=== PATIENT | female | born 2000 | race Caucasian/White ===

== ENCOUNTER 2021-06-21 15:07 | Emergency (ER) | payer OTHER, SELFPAY ==
[2021-06-21 15:13] VITALS: BP 131/95; PULSE 95; RESP 18; TEMP 36.2; O2SAT 100
--- NOTE | 2021-06-21 17:19 | PC.NURSE ---
pt not in waiting room when called. urine cup labeled with pt name found in empty wheelchair in lobby.
[2021-06-21 18:16] LABS: Hematocrit 42.1 % (37.0-47.0); Hemoglobin 14.8 g/dL (12.0-15.0); Mean Corpuscular HGB Conc 35.2 g/dl (32-36); Mean Corpuscular Hemoglobin 30.6 pg (26-34); Mean Corpuscular Volume 87.2 fl (80-100); Mean Platelet Volume 9.4 fl (7.4-10.4); Platelet Count Result 384 k/mm3 (150-375); Red Blood Count 4.83 M/mm3 (4.2-5.4); Red Cell Distribution Width 12.2 % (11.5-14.5); White Blood Count 15.1 K/mm3 (4.5-10.0)
[2021-06-21 18:28] LABS: Alanine Aminotransferase 19 U/L (4-35); Albumin Level 5.3 g/dL (3.5-5.1); Alkaline Phosphatase 97 U/L (38-126); Anion Gap 20 mmol/L (8-16); Aspartate Amino Transferase 28 U/L (14-36); Blood Urea Nitrogen 8 mg/dL (7-17); Calcium 10.4 mg/dL (8.4-10.2); Carbon Dioxide 15 mmol/L (22-30); Chloride 101 mmol/L (98-107); Estimated Glomerular Filt Rate > 60; Glucose 164 mg/dL (65-110); Lipase 64 U/L (23-300); Potassium 3.5 mmol/L (3.4-5.0); Sodium 136 mmol/L (137-145)
[2021-06-21 18:37] LABS: Add Urine Microscopic? YES; Appearance Urine Clear (Clear); Bacteria Urine Trace /hpf; Bilirubin Urine Negative (Negative); Blood Urine Negative (Negative); Color Urine Yellow (Yellow); Glucose Urine UA 1+ mg/dL (Negative); Ketones Urine 2+ mg/dL (Negative); Leukocyte Esterase Ur Negative LEU/UL (Negative); Mucus Urine Heavy /lpf; Nitrate Urine Negative (Negative); Protein Urine 2+ mg/dL (Negative); RBC Urine 0-2 /hpf (0-2); Squamous Epithelial Cell Urine Many /hpf (Few); Urobilinogen Urine Negative mg/dL (<2.0); WBC Urine 0-3 /hpf
[2021-06-21 18:46] LABS: Band Neutrophils Percent 3 % (0-6); Monocytes Absolute Manual 0.15 K/mm3 (0.1-0.90); Monocytes Percent Manual 1 % (3-9); Neutrophils Absolute Manual 14.34 K/mm3 (1.7-7.2); Neutrophils Percent Manual 92 % (46-73); Total Cells Counted 100
[2021-06-21 18:51] LABS: Giant Platelets Present
[2021-06-21 18:55] LABS: Specific Grav Ur 1.033 (1.001-1.035)
== END 2021-06-22 03:13 | disposition left against medical advice (07) ==
PROVIDERS: Emergency Provider Emergency Medicine
DX: O21.9 Vomiting of pregnancy, unspecified (principal)
CPT/HCPCS: 36415; 80053; 81001; 83690; 85025; 99199

== ENCOUNTER 2021-06-21 17:34 | Emergency (ER) | payer OTHER, SELFPAY ==
[2021-06-21 17:53] VITALS: BP 139/99; PULSE 90; RESP 18; TEMP 36.6; O2SAT 100
[2021-06-21 21:37] VITALS: BP 126/75; PULSE 91; RESP 16; O2SAT 100
--- NOTE | 2021-06-21 21:52 | ED.NAVMDI ---
HPI - Nausea/Vomiting/Diarrhea General Chief complaint: Nausea/Vomiting/Diarrhea Stated complaint: vomiting/ Time Seen by Provider: 06/21/21 21:42 History of Present Illness HPI Narrative: Patient is a 21-year-old female who presents ER with reports of nausea and vomiting for 5 days. She is 9 weeks along in her . She has had a documented ultrasound that shows IUP. No vaginal bleeding or discharge. No urinary frequency urgency or dysuria. Has not had diagnosis of morning sickness. Has not taken any antiemetics. Denies fevers or chills or sweats. Reports when she vomits she will often have some loose stool that escapes her. She reports she has had abdominal cramping in her upper abdomen related to the fact that she has been vomiting. Patient's OB is in [facility]. Related Data Allergies Allergy/AdvReac Type Severity Reaction Status Date / Time No Known Allergies Allergy Mild Verified 01/16/08 19:17 Review of Systems Review of Systems: All systems reviewed & are unremarkable except as noted in HPI and below Constitutional: Constitutional: Denies chills, Denies fever(s) and Denies weakness ENT: Denies nasal congestion and Denies sore throat Cardiovascular: Cardiovascular: Denies chest pain, Denies rapid heart rate and Denies radiating jaw, neck or arm pain Respiratory: Respiratory: Denies cough and Denies dyspnea Gastrointestinal: Gastrointestinal: Reports abdominal pain, Reports diarrhea, Reports nausea and Reports vomiting Musculoskeletal: Musculoskeletal: Denies arthralgias and Denies muscle cramps PMFSH Past Medical History Medical History (Updated 06/22/21 @ 00:00 by Juan Rosas MD) Healthy female adult Surgical History Surgical History (Updated 06/21/21 @ 21:54 by Juan Rosas MD) No history of previous surgery Social History Social History (Updated 06/21/21 @ 21:54 by Juan Rosas MD) Substance use: former Substance use type: marijuana Exam Narrative: GENERAL: Well-appearing, well-nourished, and in no acute distress. HEAD: Normocephalic, atraumatic. EYES: PERRL and EOMI. ENT: Mucous membranes moist. CHEST: Clear to auscultation. No respiratory distress. HEART: Regular rate and rhythm. Normal peripheral pulses. ABDOMEN: Soft, nontender, nondistended. EXTREMITIES: Normal range of motion. No edema. SKIN: Warm, dry, no rash. NEURO: Alert and oriented x3. Course Course Emergency Course: Brief improvement of nausea. No emesis here. Likely morning sickness but possible viral illness could be causing diarrhea with vomiting. No focal tenderness on exam. Discharge home with supportive therapy. Vital Signs Vital signs: Vital Signs Temperature 97.9 F 06/21/21 17:53 Pulse Rate 90 06/21/21 17:53 Respiratory Rate 18 06/21/21 17:53 Blood Pressure 139/99 H 06/21/21 17:53 Pulse Oximetry 100 06/21/21 17:53 Temperature 97.9 F 06/21/21 17:53 Pulse Rate 91 06/21/21 21:37 Respiratory Rate 16 06/21/21 21:37 Blood Pressure 126/75 06/21/21 21:37 Pulse Oximetry 100 06/21/21 21:37 MDM - Nausea/Vomiting/Diarrhea Lab Data Result diagrams: 06/21/21 22:13 06/21/21 22:13 Labs: Lab Results 06/21/21 06/21/21 Range/Units 22:13 22:13 WBC 14.5 H (4.5-10.0) K/mm3 RBC 4.64 (4.2-5.4) M/mm3 Hgb 14.2 (12.0-15.0) g/dL Hct 40.6 (37.0-47.0) % MCV 87.5 (80-100) fl MCH 30.6 (26-34) pg MCHC 35.0 (32-36) g/dl RDW 12.2 (11.5-14.5) % Plt Count 367 (150-375) k/mm3 MPV 9.4 (7.4-10.4) fl Immature Gran % (Auto) 0.6 H (0-0.5) % Neut % (Auto) 92.1 H (45.5-73.1) % Lymph % (Auto) 3.3 L (18.3-44.2) % Atkinson % (Auto) 3.8 (2.6-8.5) % Eos % (Auto) 0.0 (0-4.4) % Baso % (Auto) 0.2 (0.2-1.2) % Lymph # (Auto) 0.48 L (0.9-3.2) K/mm3 Atkinson # (Auto) 0.6 (0.1-0.6) K/mm3 Eos # (Auto) 0.0 (0-0.3) K/mm3 Baso # (Auto) 0.0 (0.0-0.1) K/mm3 Abs Immat Gra
[2021-06-21] MEDS: PROMETHAZINE HCL 25 MG/ML AMPUL 12.5 MG IV PUSH (22:17)
[2021-06-21] MEDS: SODIUM CHLORIDE 0.9% IV 1,000 ML 999 ML IV CONT (22:17)
[2021-06-21 22:23] LABS: Basophils Percent Auto 0.2 % (0.2-1.2); Hematocrit 40.6 % (37.0-47.0); Hemoglobin 14.2 g/dL (12.0-15.0); Immature Granulocyte Absolute 0.08 K/mm3 (0.00-0.031); Immature Granulocyte Percent A 0.6 % (0-0.5); Lymphocytes Absolute Auto 0.48 K/mm3 (0.9-3.2); Lymphocytes Percent Auto 3.3 % (18.3-44.2); Mean Corpuscular Hemoglobin 30.6 pg (26-34); Mean Corpuscular Volume 87.5 fl (80-100); Mean Platelet Volume 9.4 fl (7.4-10.4); Monocytes Absolute Auto 0.6 K/mm3 (0.1-0.6); Monocytes Percent Auto 3.8 % (2.6-8.5); Neutrophils Absolute Auto 13.4 K/mm3 (1.3-6.7); Neutrophils Percent Auto 92.1 % (45.5-73.1); Platelet Count Result 367 k/mm3 (150-375); Red Blood Count 4.64 M/mm3 (4.2-5.4); Red Cell Distribution Width 12.2 % (11.5-14.5); White Blood Count 14.5 K/mm3 (4.5-10.0)
[2021-06-21 22:33] LABS: Alanine Aminotransferase 20 U/L (4-35); Albumin Level 5.5 g/dL (3.5-5.1); Alkaline Phosphatase 86 U/L (38-126); Anion Gap 17 mmol/L (8-16); Aspartate Amino Transferase 27 U/L (14-36); Bilirubin,Total 1.1 mg/dL (0.2-1.3); Blood Urea Nitrogen 8 mg/dL (7-17); Calcium 10.5 mg/dL (8.4-10.2); Carbon Dioxide 19 mmol/L (22-30); Chloride 100 mmol/L (98-107); Estimated CRCL calculation 135 ml/min; Estimated Glomerular Filt Rate > 60; Glucose 121 mg/dL (65-110); Lipase 68 U/L (23-300); Potassium 3.7 mmol/L (3.4-5.0); Sodium 136 mmol/L (137-145)
[2021-06-22 00:18] VITALS: BP 124/72; PULSE 88; RESP 18; O2SAT 98
== END 2021-06-22 00:24 | disposition home or self-care (01) ==
PROVIDERS: Emergency Provider Emergency Medicine; PCP Obstetrics & Gynecology
DX: O21.9 Vomiting of pregnancy, unspecified (principal); Z3A.09 9 weeks gestation of pregnancy
CPT/HCPCS: 36415; 80053; 81025; 83690; 85025; 96361; 96374; 99284; J2550; J7030

== ENCOUNTER 2021-08-23 14:05 | Emergency (ER) | payer OTHER, MEDICAID, SELFPAY ==
--- NOTE | ~2021-08-23 | US_ITS ---
US OB limited 08/23/2021 16:09 Indication: Pelvic cramping and vaginal bleeding. Procedure: High-resolution Limited transabdominal obstetrical ultrasound Comparison: No prior studies for comparison. Findings: There is a single living intrauterine in transverse presentation. Amniotic fluid is subjectively normal. heart rate is 163 BPM. Placenta is anterior and low lying measuring 2 c m to the cervix. Impression: 1: Low-lying anterior placenta measuring 2 cm to the cervix. Reviewed, dictated and finalized at location A. ENTARY READING SPECIALIST Impression: 1: Low-lying anterior placenta measuring 2 cm to the cervix.
[2021-08-23 14:20] VITALS: BP 134/72; PULSE 103; RESP 16; TEMP 36.6; O2SAT 98
--- NOTE | 2021-08-23 14:40 | ED.GENADULT ---
HPI - General Adult General Chief complaint: Vaginal Bleeding <Isis Polk PA-C - Last Filed: 08/23/21 19:04> Stated complaint: vaginal bleeding <Isis Polk PA-C - Last Filed: 08/23/21 19:04> Time Seen by Provider: 08/23/21 14:30 <Isis Polk PA-C - Last Filed: 08/23/21 19:04> Source: patient <LUC Ulloa Last Filed: 08/23/21 19:04> Mode of arrival: ambulatory <Isis Polk PA-C - Last Filed: 08/23/21 19:04> Limitations: no limitations <Isis Polk PA-C - Last Filed: 08/23/21 19:04> History of Present Illness HPI narrative: Patient is here for bleeding and cramping she states that she is approximately 4 months but unsure of her actual dates. She had an ultrasound 2 weeks ago showing a uterine with with a visible heartbeat. She started bleeding this morning when she was in the tub she is stated that it was bright red blood, no clots. It lasted a couple minutes but the cramping has persisted. She denies any fever, no dysuria, no recent intercourse. <Isis Polk PA-C - Last Filed: 08/23/21 19:04> Onset (ago): hour(s) <Isis Polk PA-C - Last Filed: 08/23/21 19:04> Treatments prior to arrival: none <Isis Polk PA-C - Last Filed: 08/23/21 19:04> Related Data Allergies/adverse reactions: Allergies Allergy/AdvReac Type Severity Reaction Status Date / Time No Known Allergies Allergy Mild Verified 01/16/08 19:17 <LUC Ulloa Last Filed: 08/23/21 19:04> Review of Systems Review of Systems: All systems reviewed & are unremarkable except as noted in HPI and below <LUC Ulloa Last Filed: 08/23/21 19:04> PMFSH Past Medical History Medical History: Medical History Healthy female adult <Isis Polk PA-C - Last Filed: 08/23/21 19:04> Surgical History Surgical History: Surgical History No history of previous surgery <Isis Polk PA-C - Last Filed: 08/23/21 19:04> Social History Social History: Social History (Updated 08/23/21 @ 16:02 by Isis Polk PA-C) Smoking status: Never smoker Alcohol intake: never Substance use: current Substance use type: marijuana Living arrangements: with family <Isis Polk PA-C - Last Filed: 08/23/21 19:04> Exam Const: General: healthy appearing and alert <Isis Polk PA-C - Last Filed: 08/23/21 19:04> Orientation/consciousness: patient oriented x3 <Isis Polk PA-C - Last Filed: 08/23/21 19:04> HENMT: Head: normal to inspection <Isis Polk PA-C - Last Filed: 08/23/21 19:04> Eyes: Pupils: Equal, round and reactive pupils present <Isis Polk PA-C - Last Filed: 08/23/21 19:04> Resp: Effort & Inspection: normal respiratory effort <Isis Polk PA-C - Last Filed: 08/23/21 19:04> Auscultation: clear to auscultation bilaterally <Isis Polk PA-C - Last Filed: 08/23/21 19:04> Cardio: Rate: regular rate and tachycardic <Isis Polk PA-C - Last Filed: 08/23/21 19:04> Rhythm: regular rhythm <Isis Polk PA-C - Last Filed: 08/23/21 19:04> GI: GI Palp: Yes Soft to palpation and Yes Other GI palpation findings present (no palpable uterine edge) <Isis Polk PA-C - Last Filed: 08/23/21 19:04> Auscultation: normal bowel sounds <Isis Polk PA-C - Last Filed: 08/23/21 19:04> : External Female Exam: normal external appearance <Isis Polk PA-C - Last Filed: 08/23/21 19:04> Speculum Exam - Vagina: normal appearance of the vagina and normal palpation <Isis Polk PA-C - Last Filed: 08/23/21 19:04> Speculum Exam - Cervix: normal appearance of the cervix, normal palpation and Cervical os closed <LUC Ulloa Last Filed: 08/23/21 19:04> Bimanual exam- vagina & uterus: normal bimanual exam <Isis Fung
[2021-08-23] MEDS: SODIUM CHLORIDE 0.9% IV 1,000 ML 999 ML IV CONT (14:54)
[2021-08-23 16:00] VITALS: BP 110/70; PULSE 100; RESP 14; O2SAT 97
[2021-08-23 16:15] LABS: Basophils Percent Auto 0.2 % (0.2-1.2); Eosinophils Percent Auto 0.3 % (0-4.4); Hematocrit 34.6 % (37.0-47.0); Hemoglobin 12.3 g/dL (12.0-15.0); Immature Granulocyte Absolute 0.06 K/mm3 (0.00-0.031); Immature Granulocyte Percent A 0.5 % (0-0.5); Lymphocytes Absolute Auto 1.23 K/mm3 (0.9-3.2); Lymphocytes Percent Auto 9.6 % (18.3-44.2); Mean Corpuscular HGB Conc 35.5 g/dl (32-36); Mean Corpuscular Hemoglobin 30.6 pg (26-34); Mean Corpuscular Volume 86.1 fl (80-100); Mean Platelet Volume 9.5 fl (7.4-10.4); Monocytes Absolute Auto 0.9 K/mm3 (0.1-0.6); Monocytes Percent Auto 6.6 % (2.6-8.5); Neutrophils Absolute Auto 10.6 K/mm3 (1.3-6.7); Neutrophils Percent Auto 82.8 % (45.5-73.1); Platelet Count Result 290 k/mm3 (150-375); Red Blood Count 4.02 M/mm3 (4.2-5.4); Red Cell Distribution Width 12.1 % (11.5-14.5); White Blood Count 12.8 K/mm3 (4.5-10.0)
[2021-08-23 16:24] LABS: Anion Gap 8 mmol/L (8-16); Blood Urea Nitrogen 6 mg/dL (7-17); Calcium 8.8 mg/dL (8.4-10.2); Carbon Dioxide 21 mmol/L (22-30); Chloride 101 mmol/L (98-107); Estimated CRCL calculation 169 ml/min; Estimated Glomerular Filt Rate > 60; Glucose 86 mg/dL (65-110); Potassium 2.9 mmol/L (3.4-5.0); Sodium 130 mmol/L (137-145)
[2021-08-23] MEDS: ACETAMINOPHEN 500 MG TABLET 1000 MG PO (16:25)
[2021-08-23 16:30] LABS: Add Urine Microscopic? YES; Appearance Urine Cloudy (Clear); Bacteria Urine Trace /hpf; Bilirubin Urine Negative (Negative); Blood Urine Negative (Negative); Color Urine Yellow (Yellow); Glucose Urine UA 1+ mg/dL (Negative); Ketones Urine 2+ mg/dL (Negative); Leukocyte Esterase Ur Trace LEU/UL (Negative); Mucus Urine Heavy /lpf; Nitrate Urine Negative (Negative); Protein Urine 2+ mg/dL (Negative); RBC Urine 0-2 /hpf (0-2); Specific Grav Ur 1.028 (1.001-1.035); Squamous Epithelial Cell Urine Moderate /hpf (Few); Urobilinogen Urine Negative mg/dL (<2.0)
[2021-08-23 17:00] VITALS: BP 111/74; PULSE 74; RESP 17; O2SAT 97
[2021-08-23 18:00] VITALS: BP 118/79; PULSE 71; RESP 17; O2SAT 97
[2021-08-23] MEDS: ONDANSETRON HCL ODT 4 MG TABLET PO (18:13)
[2021-08-23] MEDS: DEXTROSE 5%/0.9% SOD CHL 1,000 ML 100 ML IV CONT (18:14)
[2021-08-23 19:11] VITALS: BP 120/77; PULSE 66; RESP 16; O2SAT 100
== END 2021-08-23 19:11 | disposition home or self-care (01) ==
PROVIDERS: Physician Assistant; Emergency Provider Emergency Medicine
DX: O26.892 Other specified pregnancy related conditions, second trimester (principal); R10.9 Unspecified abdominal pain; Z3A.00 Weeks of gestation of pregnancy not specified
CPT/HCPCS: 36415; 76815; 80048; 81001; 84702; 85025; 86850; 86900; 86901; 96360; 96361; 99284; A9270; J7030; J7042

== ENCOUNTER 2021-10-15 14:15 | Emergency (ER) | payer OTHER, MEDICAID, SELFPAY ==
[2021-10-15 14:31] VITALS: BP 92/78; PULSE 84; RESP 20; TEMP 35.9; O2SAT 100
--- NOTE | 2021-10-15 16:55 | PC.NURSE ---
No answer when called to lobby.
== END 2021-10-15 16:56 | disposition left against medical advice (07) ==
LOC: ANHED 14:50
DX: O21.9 Vomiting of pregnancy, unspecified (principal)
CPT/HCPCS: 99199

== ENCOUNTER 2021-11-24 08:34 | Observation (INO) | payer OTHER, MEDICAID, SELFPAY ==
[2021-11-24] VITALS (16 sets, daily range): BP systolic 111–135; BP diastolic 56–86; PULSE 51–93; RESP 18; TEMP 36.6; O2SAT 100; BMI 27.8
--- NOTE | 2021-11-24 08:49 | OBADM ---
This patient, Chaim Vazquez, admitted to the OB room OB Post 116 for observation. Patient/family oriented to hospital policies and general routines including ID bracelet, bed and alarms, visiting hours, pain management, procedures, bathroom and other care routines, personal items, smoking policy, room service/diet, and visiting hours. Patient/Family are encouraged to report perceived risks to care and to ask questions if they do not understand what they are told or what they should do.
[2021-11-24] MEDS: MAGNESIUM SULF 4 GM/WATER100ML 4 GM/100 ML BAG IVPB (09:06)
[2021-11-24] MEDS: LACTATED RINGERS 1,000 ML 75 ML IV CONT (09:07)
[2021-11-24] MEDS: BETAMETHASONE SOD PHOS/ACETATE 30 MG/5 ML VIAL 12 MG IM (09:09)
[2021-11-24] MEDS: AMPICILLIN 2 GM/NS 100 ML 2 GM/100 ML BAG IVPB (09:10)
--- NOTE | 2021-11-24 09:14 | PM.IMHP ---
H&P: HPI History of Present Illness Date/Time: 11/24/21 09:14 Chief Complaint: contractions and leaking Narrative: The patient is a 21-year-old 1 at 30 and 5/7 weeks with rupture of membranes and contractions at 6:30 a.m.. On arrival the patient was grossly ruptured and noted to be 3cm 70% effaced -2 station per the RN. Magnesium sulfate bolus of 6g is in progress and contractions and decreased to approximately every 6minutes. Betamethasone and ampicillin are also given. Group B strep is collected and sent with the patient. The patient has had an uncomplicated to this point. She generally sees [facility] for her OB care. Dr. 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 [facility] Past Medical History Medical History (Updated 11/24/21 @ 09:25 by Radha Montoya MD) Asthma Depression Healthy female adult Surgical History Surgical History No history of previous surgery Social History Social History (Updated 08/23/21 @ 16:02 by Isis Polk PA-C) Smoking status: Never smoker Alcohol intake: never Substance use: current Substance use type: marijuana Meds Home Medications and Allergies Home Medications Medication Instructions Recorded Confirmed Type promethazine 25 mg PO Q6H PRN #20 tablet 06/22/21 Rx ondansetron HCl [Zofran] 4 mg PO Q8H PRN #14 tablet 08/23/21 Rx Allergies Allergy/AdvReac Type Severity Reaction Status Date / Time No Known Allergies Allergy Mild Verified 01/16/08 19:17 Vital Signs Vital Signs - 24 hr 11/24/21 08:49 11/24/21 09:11 Pulse Rate 51 L 78 Blood Pressure 132/78 126/70 Pulse Oximetry 100 Exam Const: General: anxious Nutritional Appearance: average body habitus GI: Inspection: other ( Gravid) GI Palp: No abdominal tenderness : Speculum Exam - Cervix: Other cervical findings present (370/-2 vtx) Assessment and Plan Assessment and plan (1) 30 weeks gestation of : Code(s): Z3A.30 - 30 weeks gestation of Status: Acute (2) Premature rupture of membranes: Code(s): O42.90 - Premature rupture of membranes, unspecified as to length of time between rupture and onset of labor, unspecified weeks of gestation Status: Acute Assessment and Plan: with labor. Status post magnesium bolus of 6g that will be turned down [id number]. Status post betamethasone and ampicillin. The plan is to transfer the patient to [facility]
[2021-11-24] MEDS: MAGNESIUM SULF 20GM/WATER500ML 500 ML 50 MG IV CONT (09:33)
--- NOTE | 2021-11-24 10:34 | PC.NURSE ---
1020- Transport team here.
--- NOTE | 2021-11-24 10:51 | PC.NURSE ---
1040- Patient taken off unit on stretcher with JOI lin from [facility] and ambulance drivers.
== END 2021-11-24 10:45 | disposition short-term general hospital (02) ==
PROVIDERS: Admitting Provider Obstetrics & Gynecology Gynecology; Visit Provider Obstetrics & Gynecology Gynecology
DX: O60.03 Preterm labor without delivery, third trimester (principal); O42.913 Preterm premature rupture of membranes, unspecified as to length of time between rupture and onset of labor, third trimester; Z3A.30 30 weeks gestation of pregnancy
CPT/HCPCS: 96365; 96367; 96372; G0378; G0379; J0290; J0702; J3475; J7120

== ENCOUNTER 2024-08-02 20:59 | Emergency (ER) | payer OTHER, MEDICAID, SELFPAY ==
[2024-08-02 21:00] VITALS: BP 132/60; PULSE 72; RESP 15; TEMP 36.3; O2SAT 100
--- NOTE | 2024-08-02 21:13 | ED.GENADULT ---
HPI - General Adult General Chief complaint: Nausea/Vomiting/Diarrhea Stated complaint: vomiting Time Seen by Provider: 08/02/24 21:06 History of Present Illness HPI narrative: [age] female presents to the emergency department for evaluation for nausea vomiting diarrhea. Patient states approximately 3 days ago she developed the nausea vomiting diarrhea, states the diarrhea resolved yesterday but is still having persistent nausea and vomiting and is having difficulty keeping down fluids. Patient denies any associated abdominal pain. Patient denies any pain with urination. Patient is well-appearing and in no distress upon arrival to the emergency department. Related Data Allergies Allergy/AdvReac Type Severity Reaction Status Date / Time No Known Allergies Allergy Mild Verified 01/16/08 19:17 Review of Systems Review of Systems: All systems reviewed & are unremarkable except as noted in HPI and below PMFSH Past Medical History Medical History (Updated 08/02/24 @ 23:52 by Daniel Chávez MD) Asthma Depression Healthy female adult Surgical History Surgical History No history of previous surgery Social History Social History (Updated 08/23/21 @ 16:02 by Isis Polk PA-C) Smoking status: Never smoker Alcohol intake: never Substance use: current Substance use type: marijuana Living arrangements: with family Exam Narrative: APPEARANCE: Well appearing, no pain, no distress, well-nourished. HEAD: normocephalic, atraumatic. EYES: PERRLA/EOMI, conjunctivae clear. NOSE: Normal no drainage EARS:TMS clear with good light reflex. THROAT: Pharynx clear, no exudate. NECK: Supple. No adenopathy, no masses. RESPIRATORY: Airway patent, respirations nonlabored. Clear to auscultation bilaterally, no rales, rhonchi, wheezing. CARDIOVASCULAR: Regular rate and rhythm without murmurs rubs or gallops. ABDOMINAL: Suprapubic abdominal tenderness to palpation MUSCULOSKELETAL: Moves all extremities. Strength/ROM intact, No edema, No calf tenderness. NEURO: Alert. Cranial nerves II through XII intact. Grossly intact SKIN: Warm, dry. Normal Color Course Vital Signs Vital signs: Vital Signs Temperature 97.3 F L 08/02/24 21:00 Pulse Rate 72 08/02/24 21:00 Respiratory Rate 15 08/02/24 21:00 Blood Pressure 132/60 08/02/24 21:00 Pulse Oximetry 100 08/02/24 21:00 Oxygen Delivery Room Air 08/02/24 21:00 Temperature 97.3 F L 08/02/24 21:00 Pulse Rate 55 L 08/02/24 23:58 Respiratory Rate 14 08/02/24 23:58 Blood Pressure 133/74 08/02/24 23:58 Pulse Oximetry 100 08/02/24 23:58 Oxygen Delivery Room Air 08/02/24 21:00 Medical Decision Making MDM Narrative Medical decision making narrative: [age] old female present to the emergency department for evaluation for persistent nausea and vomiting. Patient was treated with a dose of IV Zofran and had some improvement. Patient felt significantly improved after IV Reglan. Patient is afebrile with no leukocytosis and hemoglobin of 15.5. No acute abnormalities on her CMP. UA was negative for infection. Urine culture was ordered. On re-evaluation patient states she does feel improved after the Reglan. Patient will be discharged home with instructions for clear liquid diet medications for for nausea. Differential Diagnosis Differential Diagnosis: Colitis, diverticulitis, gastroenteritis, nausea vomiting Vital Signs Vital Signs: Vital Signs Temperature 97.3 F L 08/02/24 21:00 Pulse Rate 72 08/02/24 21:00 Respiratory Rate 15 08/02/24 21:00 Blood Pressure 132/60 08/02/24 21:00 Pulse Oximetry 100 08/02/24 21:00 Oxygen Delivery Room Air 08/02/24 21:00 Temperature 97.3 F L 08/02/24 21:00 Pulse Rate 55 L 08/02/24 23:58 Respiratory Rate 14 08/02/24 23:58 Blood Pressure 133/74 08/02/24 23:58 Pulse Oximetry 100 08/02/24 23:58 Oxygen Delivery Room Air 08/02/24 21:00 Lab Data Lab results reviewed: Yes I reviewed the patient's lab results. 08/02/24 21:18 08/02/24 21:18 Labs: Lab Results 08/02/24 08/02/24 Range/Units 21:08 21:18 WBC 7.4 (4.5-10.0) K/mm3 RBC 5.02 (4.2-5.4) M/mm3 Hgb 15.5 H D (12.0-15.0) g/dL Hct 44.7 (37.0-47.0) % MCV 89.0 (80-100) fl MCH 30.9 (26-34) pg MCHC 34.7 (32-36) g/dl RDW 12.1 (11.5-14.5) % Plt Count 289 (150-375) k/mm3 MPV 9.6 (7.4-10.4) fl Immature Gran % (Auto) 0.4 (0-0.5) % Neut % (Auto) 83.6 H (45.5-73.1) % Lymph % (Auto) 7.9 L (18.3-44.2) % Weber % (Auto) 7.7 (2.6-8.5) % Eos % (Auto) 0.1 (0-4.4) % Baso % (Auto) 0.3 (0.2-1.2) % Lymph # (Auto) 0.58 L (0.9-3.2) K/mm3 Weber # (Auto) 0.6 (0.1-0.6) K/mm3 Eos # (Auto) 0.0 (0-0.3) K/mm3 Baso # (Auto) 0.0 (0.0-0.1) K/mm3 Abs Immat Gran (auto) 0.03 (0.00-0.031) K/mm3 Absolute Neuts (auto) 6.2 (1.3-6.7) K/mm3 Absolute Nucleated RBC 0.000 (0.0-0.012) K/mm3 Nucleated RBC % 0.0 (0.0-0.2) % Sodium 139 (137-145) mmol/L Potassium 3.5 (3.4-5.0) mmol/L Chloride 97 L (98-107) mmol/L Carbon Dioxide 26 (22-30) mmol/L Anion Gap 16 H (4-12) mmol/L BUN 10 (7-17) mg/dL Creatinine 0.60 L (0.7-1.0) mg/dL Estim Creat Clear Calc 106 ml/min Estimated GFR > 60 (59 - ) Glucose 114 H (65-110) mg/dL Lactic Acid 1.5 (0.7-2.0) mmol/L Calcium 9.8 (8.4-10.2) mg/dL Total Bilirubin 0.7 (0.2-1.3) mg/dL AST 26 (14-36) U/L ALT 20 (6-35) U/L Alkaline Phosphatase 80 (38-126) U/L Total Protein 9.0 H (6.3-8.2) g/dL Albumin 5.2 H (3.5-5.1) g/dL Urine Color Yellow (Yellow) Urine Appearance Clear (Clear) Urine pH 6.0 (5.0-9.0) Ur Specific [place] 1.033 (1.001-1.035) Urine Protein 2+ H (Negative) mg/dL Urine Glucose (UA) Negative (Negative) mg/dL Urine Ketones 4+ H (Negative) mg/dL Ur Blood (Man) Non-hemolyzed trace H (Negative) Urine Nitrate Negative (Negative) Urine Bilirubin Negative (Negative) Urine Urobilinogen 1.0 (<2.0) mg/dL Add Ur Microanalysis Reviewed Leukocyte Esterase Rfl Negative (Negative) DARIN/UL Urine RBC 6-10 H (0-2) /hpf Urine WBC 0-5 (0-3) /hpf Ur Squamous Epith Cells Few (Few) /hpf Urine Bacteria 1+ H /hpf Urine Casts 0-2 Urine Mucus Present /lpf POC Urine HCG, Qual Negative (Negative) Discharge Plan Discharge Clinical Impression: Nausea & vomiting Patient Disposition: Home, Self-Care Condition: Stable Instructions: Antibiotic Form, Clear Liquid Diet (ED), Acute Nausea and Vomiting (ED) Additional Instructions: Zofran as needed for nausea control. reglan as needed for additional nausea control. Clear liquid diet for the next 1-3 days. Advance to bland diet as tolerated. Have close follow-up with your primary care physician. Prescriptions: New ondansetron 4 mg tablet,disintegrating 4 mg PO Q8H PRN (Reason: nausea and vomiting) Qty: 14 0RF metoclopramide HCl [Reglan] 10 mg tablet 10 mg PO Q6H PRN (Reason: nausea and vomiting) Qty: 14 0RF No Action ondansetron HCl [Zofran] 4 mg tablet 4 mg PO Q8H PRN (Reason: nausea and vomiting) Qty: 14 0RF Follow-up/Referrals: PHYSICIAN,FINANCIAL RESERVE CLERK [Primary Care Provider] -
[2024-08-02 21:15] VITALS: BP 147/72; PULSE 73; RESP 19; O2SAT 100
[2024-08-02] MEDS: ONDANSETRON INJ 4 MG/2 ML VIAL IV PUSH (21:20)
[2024-08-02] MEDS: SODIUM CHLORIDE 0.9% IV 1,000 ML 999 ML IV CONT (21:20)
[2024-08-02 21:26] LABS: BEDSIDEPREGUCG Negative (Negative)
[2024-08-02 21:33] LABS: Basophils Percent Auto 0.3 % (0.2-1.2); Eosinophils Percent Auto 0.1 % (0-4.4); Hematocrit 44.7 % (37.0-47.0); Hemoglobin 15.5 g/dL (12.0-15.0); Immature Granulocyte Absolute 0.03 K/mm3 (0.00-0.031); Immature Granulocyte Percent A 0.4 % (0-0.5); Lymphocytes Absolute Auto 0.58 K/mm3 (0.9-3.2); Lymphocytes Percent Auto 7.9 % (18.3-44.2); Mean Corpuscular HGB Conc 34.7 g/dl (32-36); Mean Corpuscular Hemoglobin 30.9 pg (26-34); Mean Platelet Volume 9.6 fl (7.4-10.4); Monocytes Absolute Auto 0.6 K/mm3 (0.1-0.6); Monocytes Percent Auto 7.7 % (2.6-8.5); Neutrophils Absolute Auto 6.2 K/mm3 (1.3-6.7); Neutrophils Percent Auto 83.6 % (45.5-73.1); Platelet Count Result 289 k/mm3 (150-375); Red Blood Count 5.02 M/mm3 (4.2-5.4); Red Cell Distribution Width 12.1 % (11.5-14.5); White Blood Count 7.4 K/mm3 (4.5-10.0)
[2024-08-02 21:40] LABS: Lactic Acid Reflex 1.5 mmol/L (0.7-2.0)
[2024-08-02 21:43] LABS: Alanine Aminotransferase 20 U/L (6-35); Albumin Level 5.2 g/dL (3.5-5.1); Alkaline Phosphatase 80 U/L (38-126); Anion Gap 16 mmol/L (4-12); Aspartate Amino Transferase 26 U/L (14-36); Bilirubin,Total 0.7 mg/dL (0.2-1.3); Blood Urea Nitrogen 10 mg/dL (7-17); Calcium 9.8 mg/dL (8.4-10.2); Carbon Dioxide 26 mmol/L (22-30); Chloride 97 mmol/L (98-107); Estimated CRCL calculation 106 ml/min; Estimated Glomerular Filt Rate > 60; Glucose 114 mg/dL (65-110); Potassium 3.5 mmol/L (3.4-5.0); Sodium 139 mmol/L (137-145)
[2024-08-02 21:51] LABS: Add Urine Microscopic? YES; Appearance Urine Clear (Clear); Bacteria Urine 1+ /hpf; Bilirubin Urine Negative (Negative); Blood Urine Non-Hemolyzed Trace (Negative); Color Urine Yellow (Yellow); Glucose Urine UA Negative (Negative); Ketones Urine 4+ mg/dL (Negative); Leukocyte Esterase Ur Negative LEU/UL (Negative); Mucus Urine Present /lpf; Need Manual Microscopic Reviewed; Nitrate Urine Negative (Negative); Non Pathogenic Casts 0-2; Protein Urine 2+ mg/dL (Negative); Specific Grav Ur 1.033 (1.001-1.035); Squamous Epithelial Cell Urine Few /hpf (Few); WBC Urine 0-5 /hpf (0-3)
[2024-08-02 22:49] VITALS: BP 151/94; PULSE 62; RESP 18; O2SAT 100
[2024-08-02] MEDS: METOCLOPRAMIDE HCL INJ 10 MG/2 ML VIAL IV PUSH (22:49)
[2024-08-02 23:58] VITALS: BP 133/74; PULSE 55; RESP 14; O2SAT 100
== END 2024-08-03 | disposition home or self-care (01) ==
PROVIDERS: Emergency Provider Emergency Medicine
DX: R11.2 Nausea with vomiting, unspecified (principal); J45.909 Unspecified asthma, uncomplicated
CPT/HCPCS: 36415; 80053; 81001; 81025; 83605; 85025; 96361; 96374; 96375; 99284; J2405; J2765; J7030

== ENCOUNTER 2024-08-06 06:13 | Emergency (ER) | payer OTHER, MEDICAID, SELFPAY ==
[2024-08-06] VITALS (20 sets, daily range): BP systolic 127–136; BP diastolic 81–95; PULSE 64–89; RESP 18–20; TEMP 36.6–37; O2SAT 90–100
--- NOTE | ~2024-08-06 | CT_ITS ---
EXAMINATION: CT abdomen pelvis w con DATE: 08/06/2024 08:02 INDICATION: Abdominal pain. TECHNIQUE: Computed tomography (CT) of the abdomen and pelvis was performed with 100 mL Omnipaque 350 intravenous contrast. Automated exposure control and iterative reconstruction technique were employe d. The dose-length product was 214.84 mGy-cm. COMPARISON: None. FINDINGS: The visualized portions of the lung bases are clear without pneumonia or pleural effusion. The heart size is normal. No pericardial effusion. The liver, gallbladder, spleen, pancreas, adrenal glands, and left kidney are normal. There is an 8 mm cyst in right kidney. There are no dilated loops of bowel. The appendix is normal. There are no pathologically enlarged lymph nodes. There is physiol ogic fluid in the pelvis. There are Schmorl's nodes at multiple levels in the spine. IMPRESSION: 1. No etiology for the patient's symptoms. Reviewed, dictated and finalized at location A. NSED PRACTICAL NURSE
[2024-08-06 06:30] LABS: Basophils Absolute Auto 0.1 K/mm3 (0.0-0.1); Basophils Percent Auto 0.6 % (0.2-1.2); Eosinophils Absolute Auto 0.1 K/mm3 (0-0.3); Eosinophils Percent Auto 1.3 % (0-4.4); Hematocrit 44.4 % (37.0-47.0); Hemoglobin 15.1 g/dL (12.0-15.0); Immature Granulocyte Absolute 0.04 K/mm3 (0.00-0.031); Immature Granulocyte Percent A 0.5 % (0-0.5); Lymphocytes Percent Auto 15.9 % (18.3-44.2); Mean Corpuscular Volume 88.3 fl (80-100); Mean Platelet Volume 9.1 fl (7.4-10.4); Monocytes Absolute Auto 0.9 K/mm3 (0.1-0.6); Monocytes Percent Auto 10.6 % (2.6-8.5); Neutrophils Absolute Auto 6.3 K/mm3 (1.3-6.7); Neutrophils Percent Auto 71.1 % (45.5-73.1); Platelet Count Result 333 k/mm3 (150-375); Red Blood Count 5.03 M/mm3 (4.2-5.4); Red Cell Distribution Width 11.7 % (11.5-14.5); White Blood Count 8.8 K/mm3 (4.5-10.0)
[2024-08-06 06:37] LABS: BEDSIDEPREGUCG Negative (Negative)
[2024-08-06 06:40] LABS: Alanine Aminotransferase 16 U/L (6-35); Albumin Level 4.9 g/dL (3.5-5.1); Alkaline Phosphatase 75 U/L (38-126); Anion Gap 11 mmol/L (4-12); Aspartate Amino Transferase 25 U/L (14-36); Bilirubin,Total 1.2 mg/dL (0.2-1.3); Blood Urea Nitrogen 11 mg/dL (7-17); Calcium 9.3 mg/dL (8.4-10.2); Carbon Dioxide 26 mmol/L (22-30); Chloride 96 mmol/L (98-107); Estimated CRCL calculation 88 ml/min; Estimated Glomerular Filt Rate > 60; Glucose 79 mg/dL (65-110); Lipase 66 U/L (23-300); Potassium 3.5 mmol/L (3.4-5.0); Sodium 133 mmol/L (137-145)
[2024-08-06 06:48] LABS: Add Urine Microscopic? YES; Appearance Urine Clear (Clear); Bacteria Urine 1+ /hpf; Bilirubin Urine Negative (Negative); Blood Urine 2+ (Negative); Color Urine Yellow (Yellow); Glucose Urine UA Negative (Negative); Ketones Urine 4+ mg/dL (Negative); Leukocyte Esterase Ur Trace LEU/UL (Negative); Nitrate Urine Negative (Negative); Non Pathogenic Casts 0-2; Protein Urine 1+ mg/dL (Negative); RBC Urine 0-2 /hpf (0-2); Specific Grav Ur 1.027 (1.001-1.035); Squamous Epithelial Cell Urine Occasional /hpf (Few); pH Urine 5.5 (5.0-9.0)
[2024-08-06] MEDS: ONDANSETRON INJ 4 MG/2 ML VIAL IV PUSH (08:09)
--- NOTE | 2024-08-06 08:44 | ED.GENADULT ---
HPI - General Adult General Chief complaint: Nausea/Vomiting/Diarrhea Stated complaint: Nausea; major contsipation ; no intake 5 days Time Seen by Provider: 08/06/24 07:11 History of Present Illness HPI narrative: Patient is a 24-year-old female who presents emergency department with chief complaint of nausea constipation and not eating and drinking for the last 5 days. The patient reports she was seen in the emergency department recently for nausea vomiting the patient reports that she has had no bowel movement and has a heavy feeling in her abdomen. Patient reports that she still feels nauseated reports no fevers Related Data Allergies Allergy/AdvReac Type Severity Reaction Status Date / Time No Known Allergies Allergy Mild Verified 08/06/24 06:23 Review of Systems Review of Systems: A 10 system review of systems was completed on the patient and is negative except for what is stated in the HPI. Nursing and ancillary documentation was reviewed. [facility] Past Medical History Medical History Asthma Depression Healthy female adult Surgical History Surgical History No history of previous surgery Social History Social History Smoking status: Never smoker Alcohol intake: never Substance use: current Substance use type: marijuana Living arrangements: with family Exam Narrative: GENERAL: Well-appearing, well-nourished, and in no acute distress. HEAD: Normocephalic, atraumatic. EYES: PERRLA and EOMI. ENT: Nares clear, no rhinorrhea or epistaxis. Mucous membranes moist. NECK: Supple. CHEST: Clear to auscultation. No respiratory distress. HEART: Regular rate and rhythm. No murmur heard. Normal peripheral pulses. ABDOMEN: Soft, diffuse mild tenderness, nondistended, normal active bowel sounds. EXTREMITIES: Normal range of motion. No edema. SKIN: Warm, dry, no rash. NEURO: No focal deficits. Alert and oriented x3. PSYCH: Normal mood and affect. Course Vital Signs Vital signs: Vital Signs Temperature 37.0 C 08/06/24 06:18 Pulse Rate 89 08/06/24 06:18 Respiratory Rate 20 08/06/24 06:18 Blood Pressure 134/95 H 08/06/24 06:18 Pulse Oximetry 100 08/06/24 06:18 Oxygen Delivery Room Air 08/06/24 06:18 Temperature 36.6 C 08/06/24 09:20 Pulse Rate 70 08/06/24 09:20 Respiratory Rate 18 08/06/24 09:20 Blood Pressure 136/88 08/06/24 09:20 Pulse Oximetry 100 08/06/24 09:20 Oxygen Delivery Room Air 08/06/24 06:18 Medical Decision Making [facility] Narrative Medical decision making narrative: Differential diagnosis includes intra-abdominal infection, bowel obstruction, constipation, UTI, pyelonephritis Laboratory studies were obtained on the patient showed a CBC with white count of 8.8 hemoglobin was 15.1 is slightly decreased from the previous visit. Electrolytes showed a sodium 133 creatinine was 0.7 bilirubin is 1.2 AST and ALT are normal lipase was normal urinalysis showed 4+ ketones trace leukocyte esterase 6-10 white blood cells 1+ bacteria. Vital Signs Vital Signs: Vital Signs Temperature 37.0 C 08/06/24 06:18 Pulse Rate 89 08/06/24 06:18 Respiratory Rate 20 08/06/24 06:18 Blood Pressure 134/95 H 08/06/24 06:18 Pulse Oximetry 100 08/06/24 06:18 Oxygen Delivery Room Air 08/06/24 06:18 Temperature 36.6 C 08/06/24 09:20 Pulse Rate 70 08/06/24 09:20 Respiratory Rate 18 08/06/24 09:20 Blood Pressure 136/88 08/06/24 09:20 Pulse Oximetry 100 08/06/24 09:20 Oxygen Delivery Room Air 08/06/24 06:18 Lab Data 08/06/24 06:24 08/06/24 06:24 Labs: Lab Results 08/06/24 08/06/24 08/06/24 Range/Units 06:24 06:33 06:35 WBC 8.8 (4.5-10.0) K/mm3 RBC 5.03 (4.2-5.4) M/mm3 Hgb 15.1 H (12.0-15.0) g/dL Hct 44.4 (37.0-47.0) % MCV 88.3 (80-100) fl MCH 30.0 (26-34) pg MCHC 34.0 (32-36) g/dl RDW 11.7 (11.5-14.5) % Plt Count 333 (150-375) k/mm3 MPV 9.1 (7.4-10.4) fl Immature Gran % (Auto) 0.5 (0-0.5) % Neut % (Auto) 71.1 (45.5-73.1) % Lymph % (Auto) 15.9 L (18.3-44.2) % [place] % (Auto) 10.6 H (2.6-8.5) % Eos % (Auto) 1.3 (0-4.4) % Baso % (Auto) 0.6 (0.2-1.2) % Lymph # (Auto) 1.40 (0.9-3.2) K/mm3 [place] # (Auto) 0.9 H (0.1-0.6) K/mm3 Eos # (Auto) 0.1 (0-0.3) K/mm3 Baso # (Auto) 0.1 (0.0-0.1) K/mm3 Abs Immat Gran (auto) 0.04 H (0.00-0.031) K/mm3 Absolute Neuts (auto) 6.3 (1.3-6.7) K/mm3 Absolute Nucleated RBC 0.000 (0.0-0.012) K/mm3 Nucleated RBC % 0.0 (0.0-0.2) % Sodium 133 L (137-145) mmol/L Potassium 3.5 (3.4-5.0) mmol/L Chloride 96 L (98-107) mmol/L Carbon Dioxide 26 (22-30) mmol/L Anion Gap 11 (4-12) mmol/L BUN 11 (7-17) mg/dL Creatinine 0.70 (0.7-1.0) mg/dL Estim Creat Clear Calc 88 ml/min Estimated GFR > 60 (59 - ) Glucose 79 (65-110) mg/dL Calcium 9.3 (8.4-10.2) mg/dL Total Bilirubin 1.2 (0.2-1.3) mg/dL AST 25 (14-36) U/L ALT 16 (6-35) U/L Alkaline Phosphatase 75 (38-126) U/L Total Protein 8.0 (6.3-8.2) g/dL Albumin 4.9 (3.5-5.1) g/dL Lipase 66 (23-300) U/L Urine Color Yellow (Yellow) Urine Appearance Clear (Clear) Urine pH 5.5 (5.0-9.0) Ur Specific [place] 1.027 (1.001-1.035) Urine Protein 1+ H (Negative) mg/dL Urine Glucose (UA) Negative (Negative) mg/dL Urine Ketones 4+ H (Negative) mg/dL Ur Blood (Man) 2+ H (Negative) Urine Nitrate Negative (Negative) Urine Bilirubin Negative (Negative) Urine Urobilinogen 1.0 (<2.0) mg/dL Leukocyte Esterase Rfl Trace H (Negative) DARIN/UL Urine RBC 0-2 (0-2) /hpf Urine WBC 6-10 H (0-3) /hpf Ur Squamous Epith Cells Occasional (Few) /hpf Urine Bacteria 1+ H /hpf Urine Casts 0-2 POC Urine HCG, Qual Negative (Negative) Discharge Plan Discharge Clinical Impression: UTI (urinary tract infection), Abdominal pain, Nausea and vomiting Patient Disposition: Home, Self-Care Condition: Stable Instructions: Antibiotic Form, Urinary Tract Infection in Women (ED), Acute Nausea and Vomiting (ED), Abdominal Pain (ED) Prescriptions: New ondansetron 4 mg tablet,disintegrating 4 mg PO Q8H PRN (Reason: nausea and vomiting) Qty: 10 0RF cephalexin 500 mg capsule 500 mg PO Q12H 7 Days Qty: 14 0RF No Action ondansetron HCl [Zofran] 4 mg tablet 4 mg PO Q8H PRN (Reason: nausea and vomiting) Qty: 14 0RF ondansetron 4 mg tablet,disintegrating 4 mg PO Q8H PRN (Reason: nausea and vomiting) Qty: 14 0RF metoclopramide HCl [Reglan] 10 mg tablet 10 mg PO Q6H PRN (Reason: nausea and vomiting) Qty: 14 0RF Follow-up/Referrals: Catarino Kuo MD [Physician] - UNKNOWN,DOCTOR [Primary Care Provider] - Time of Disposition: 09:09
[2024-08-06] MEDS: MAGNESIUM CITRATE 300 ML BTL PO (09:18)
== END 2024-08-06 09:22 | disposition home or self-care (01) ==
PROVIDERS: Preventive Medicine Aerospace Medicine; Emergency Provider Emergency Medicine
DX: N39.0 Urinary tract infection, site not specified (principal); R11.2 Nausea with vomiting, unspecified; R10.9 Unspecified abdominal pain
CPT/HCPCS: 36415; 74177; 80053; 81001; 81025; 83690; 85025; 87086; 99284; A9270; J2405; Q9967

== ENCOUNTER 2025-02-15 16:48 | Outpatient (CLI) | payer OTHER, MEDICAID, SELFPAY ==
--- NOTE | ~2025-02-15 | XR_ITS ---
Supine views of the abdomen Clinical history: Abdominal pain Findings: Bowel gas pattern is nonspecific. No evidence for obstruction or free air. No abnormal mass lesion or calcification is seen. Osseous structures are intact. Impression: No significant abnormality is seen. Reviewed, dictated and finalized at [facility]. Impression: No significant abnormality is seen.
--- OUTSIDE RECORDS SUMMARY | 2025-02-15 16:51 | XMS_ITS | Clinical Summary ---
Author Organization [facility] Address [address] [place] [address] Care Team Providers Care Nurse Tech Name Role Phone Minh Lam DO Primary Care Provider [phone] Allergies No known active allergies Medications famotidine (PEPCID) 40 mg tablet Take 1 tablet (40 mg total) by mouth daily 30 tablet 11 Active sucralfate (CARAFATE) 1 gram tablet Take 1 tablet (1 g total) by mouth 4 (four) times a day as needed (severity of heartburn) You may decrease to twice per day preferably before supper and bedtime 120 tablet 1 Active methylPREDNISolon e (MEDROL DOSEPACK) 4 mg Dosepack Take as directed on package 1 packet Active ondansetron (ZOFRAN) 8 mg tablet Take 1 tablet (8 mg total) by mouth every 8 (eight) hours as needed for nausea or vomiting Disintegrating tablet fine to give 60 tablet 1 Active metoclopramide (REGLAN) 10 mg tablet Take 1 tablet (10 mg total) by mouth 4 (four) times a day as needed (nausea) 60 tablet 1 Active guaiFENesin ER (MUCINEX) 600 mg 12 hr tablet Take 1 tablet (600 mg total) by mouth 2 (two) times a day 60 tablet 1 Active ondansetron ODT (ZOFRAN-ODT) 4 mg disintegrating tabletIndications :Excessive Vomiting in Take 1 tablet (4 mg total) by mouth every 8 (eight) hours as needed for nausea or vomiting 30 tablet 3 022 Active metoclopramide (REGLAN) 10 mg tablet Take 1 tablet (10 mg total) by mouth every 6 (six) hours 120 tablet 025 2024 Active metoclopramide (REGLAN) 10 mg tablet Take 1 tablet (10 mg total) by mouth every 6 (six) hours 120 tablet 025 2024 Discontinued Active Problems Problem Noted Date Diagnosed Date Hyperemesis 06/28/2021 Encounters Date Type Department Care Team Description 02/13/2025 5:16 AM CDT - 02/13/2025 9:12 AM CDT Emergency [facility] Emergency Department [address] [place] [id number] Awilda Prieto MD Nausea and vomiting, unspecified vomiting type (Primary Dx) Discharge Disposition: Discharge to home or self care from Last 3 Months Social History Tobacco Use Types Packs/Day Years Used Date Smoking Tobacco: Never Personal Safety Answer Date Recorded Have you ever been in or are you currently in a harmful physical or emotional relationship or is someone making you feel afraid or unsafe? Denies 02/13/2025 Comments No Sex and Gender Information Value Date Recorded Sex Assigned at Not on file Legal Sex Female 12:07 AM [employer] Gender Identity Not on file Sexual Orientation Not on file Obstetrics History Para Term AB IAB SAB Ectopic Multiple Livin g Live Births 1 Date Outcome GA Total Labor Labor/2nd/3rd Weight Sex Type Anes PTL Talia A1 A5 Name Clin Last Filed Vital Signs Vital Sign Reading Time Taken Comments Blood Pressure 121/74 02/13/2025 8:00 AM CDT Pulse 51 02/13/2025 8:45 AM CDT Temperature 36.1 C (96.9 F) 02/13/2025 4:48 AM CDT Respiratory Rate 18 02/13/2025 4:48 AM CDT Oxygen Saturation 100% 02/13/2025 8:45 AM CDT Inhaled Oxygen Concentration - - Weight 56.2 kg (124 lb) 02/13/2025 4:48 AM CDT Height 167.6 cm (5' 6 ) 02/13/2025 4:48 AM CDT Body Mass Index 20.01 02/13/2025 4:48 AM CDT Plan of Treatment Health Maintenance Due Date Last Done Comments Cervical Cancer Screening 2000 Depression Screening 2000 Hepatitis C Screening 2000 DTaP/Tdap/Td Vaccine (1 - Tdap) 2011 Varicella Vaccines (1 of 2 - 13+ 2-dose series) 2012 HPV Vaccines (1 - 3-dose series) 2015 Hepatitis B Screening 2018 Regular Well Visit/Exam 18-64 2018 Pneumococcal vaccine <65 (1 of 2 - PCV) 2019 Influenza Vaccine (Season Ended) 2025 Procedures Procedure Name Priority Date/Time Associated Diagnosis Comments URINALYSIS, MICROSCOPIC ONLY STAT 02/13/2025 7:47 AM CDT HCG, URINE, QUALITATIVE STAT 02/13/2025 7:47 AM CDT URINALYSIS AND REFLEX TO MICROSCOPIC AND CULTURE STAT 02/13/2025 7:47 AM CDT EGFR STAT 02/13/2025 4:54 AM CDT DIFFERENTIAL AUTO STAT 02/13/2025 4:5 4 AM CDT LIPASE STAT 02/13/2025 4:54 AM CDT COMPREHENSIVE METABOLIC PANEL STAT 02/13/2025 4:54 AM CDT CBC WITH AUTO DIFFERENTIAL STAT 02/13/2025 4:54 AM CDT from Last 3 Months Results * (ABNORMAL) Urinalysis reflex to microscopic and culture Urine (02/13/2025 7:47 AM CDT) Color, ur Yellow Yellow Clarity, ur Clear Clear [facility] ([place]) Specific gravity, ur 1.019 1.003 - 1.030 [facility] ([place]) pH, urine 6.5 [facility] ([place]) Comment: Interpretive Data U rine pH is affected by diet, medications, systemic acid-base disturbances, and renal tubular function. pH may affect urinary stone formation. For example, urine pH below 6.0 may help reduce the tendency for calcium phosphate stones and pH greater than 6.0 may reduce the tendency for uric acid stone formation. Source: [facility] Current Interpretive Data was last revised on 2017 Protein, ur ql Negative Negative [facility] ([place]) Glucose, ur ql Negative Negative [facility] ([place]) Ketones, ur 1+(A) Negative [facility] ([place]) Bilirubin, ur Negative Negative [facility] ([place]) Blood, ur 3+(A) Negative [facility] ([place]) Urobilinogen, ur <2.0 <2.0 mg/dL [facility] ([place]) Nitrite, ur Negative Negative [facility] ([place]) Leukocyte esterase, ur Negative Negative [facility] ([place]) UA reflex comment Reflex to microscopic UA will be performed. [facility] ([place]) Urine 02/13/2025 7:47 AM CDT 02/13/2025 8:03 AM CDT Awilda Prieto MD LAB MICROBIOLOGY - GENERA L ORDERABLES Final Result Performing Organization Address [facility] Co de Phone Number [facility] ([place]) 1 [facility] [place] [address] * hCG, urine, qualitative (02/13/2025 7:47 AM CDT) HCG, ur Negative Negative Urine 02/13/2025 7:47 AM CDT 02/13/2025 8:18 AM CDT Awilda Prieto MD LAB URINE ORDERABLES Rocio l Result Performing Organization Address City/[facility]/ZIP Co de Phone Number [facility] ([place] [address] [facility] [place] [address] * (ABNORMAL) Urinalysis, microscopic only (02/13/2025 7:47 AM CDT) WBC, ur 0-5 0 - 5 /HPF RBC, ur 11-20(A) 0 - 2 /HPF [facility] ([place]) Epithelial cells, squamous, ur 1-5 0 - 5 /HPF [facility] ([place]) Mucous, ur Present(A) [facility] ([place]) Culture Reflex Comment Reflex conditions for urine culture (WBC >10) not met. [facility] ([place]) Urine 02/13/2025 7:47 AM CDT 02/13/2025 8:03 AM CDT us Rebekah Whaley MD LAB URINE ORDERABLES Final Resul t [facility] ([place]) 1 [facility] Department [place] [address] * eGFR (02/13/2025 4:54 AM CDT) eGFR >90 >=60 mL/min/1. 73 m2 Comment: Interpretive Data Reference Interval Normal >/= 90 mL/min/1.73m2 Mildly decreased* 60 - 89 mL/min/1.73m2 Mildly to moderately decreased 45 - 59 mL/min/1.73m2 Moderately to severely decreased 30 - 44 mL/min/1.73m2 Severely decreased 15 - 29 mL/min/1.73m2 Kidney Failure < 15 mL/min/1.73m2 *Relative to young adult level Estimated glomerular filtration rate is determined by the 2020 CKD-EPI equation recommended by the National Kidney Foundation (A Unifying Approach to GFR Estimation: Recommendations of the NKF-ASK Task Force on Reassessing the Inclusion of Race in Diagnosing Kidney Disease, JASN 202). The CKD-EPI equation should not be used for patients with unstable renal function and has not been validated in children and those over 70. Current interpretive data was last reviewed 2021. Blood 02/13/2025 4:54 AM CDT 02/13/2025 5:05 AM CDT us Awilda Prieto MD LAB BLOOD ORDERABLES Rocio sheppard Result [facility] ([place]) 1 [facility] Department [place] [address] * (ABNORMAL) Differential, auto (02/13/2025 4:54 AM CDT) Neutrophil abs 7.70(H) 1.50 - 6.50 K/cumm Imm gran abs 0.04 0.00 - 0.10 K/cumm [facility] ([place]) Lymphocyte abs 1.57 0.80 - 3.30 K/cumm [facility] ([place]) Monocyte abs 0.73 0.20 - 0.80 K/cumm [facility] ([place]) Eosinophil abs 0.21 0.00 - 0.50 K/cumm [facility] ([place]) Basophil abs 0.07 0.00 - 0.10 K/cumm [facility] ([place]) Neutrophil pct 74.6 % [facility] ([place]) Comment: Interpretive Data Percent cell count reference ranges are not reported, since discordance with absolute values may lead to misinterpretation of CBC data. Current Interpretive Data was last revised on 2018. Imm gran pct 0.4 % [facility] ([place]) Comment: Interpretive Data Percent cell count reference ranges are not reported, since discordance with absolute values may lead to misinterpretation of CBC data. Current Interpretive Data was last revised on 2018. Lymphocyte pct 15.2 % [facility] ([place]) Comment: Interpretive Data Percent cell count reference ranges are not reported, since discordance with absolute values may lead to misinterpretation of CBC data. Current Interpretive Data was last revised on 2018. Monocyte pct 7.1 % [facility] ([place]) Comment: Interpretive Data Percent cell count reference ranges are not reported, since discordance with absolute values may lead to misinterpretation of CBC data. Current Interpretive Data was last revised on 2018. Eosinophil pct 2.0 % [facility] ([place]) Comment: Interpretive Data Percent cell count reference ranges are not reported, since discordance with absolute values may lead to misinterpretation of CBC data. Current Interpretive Data was last revised on 2018. Basophil pct 0.7 % [facility] ([place]) Comment: Interpretive Data Percent cell count reference ranges are not reported, since discordance with absolute values may lead to misinterpretation of CBC data. Current Interpretive Data was last revised on 2018. Blood 02/13/2025 4:54 AM CDT 02/13/2025 5:04 AM CDT Awilda Prieto MD LAB BLOOD ORDERABLES Rocio sheppard Result [facility] ([place]) 1 [facility] [place] [address] * (ABNORMAL) CBC with auto differential (02/13/2025 4:54 AM CDT) WBC 10.32(H) 3.80 - 9.90 K/cumm Hgb 13.9 11.9 - 15.5 g/dL [facility] ([place]) Hct 40.8 35.6 - 45.5 % [facility] ([place]) Plt 346 150 - 400 K/cumm [facility] ([place]) MPV 9.3 9.1 - 12.3 fL [facility] ([place]) RBC 4.63 3.90 - 5.20 M/cumm [facility] ([place]) MCV 88.1 81.3 - 96.4 fL [facility] ([place]) MCH 30.0 27.1 - 33.3 pg [facility] ([place]) MCHC 34.1 32.3 - 35.7 g/dL [facility] ([place]) RDW CV 13.0 11.1 - 14.9 % [facility] ([place]) RDW SD 41.7 35.7 - 48.1 fL [facility] ([place]) NRBC abs 0.00 0.00 - 0.01 K/cumm [facility] ([place]) Blood Venous blood specimen / Unknown 02/13/2025 4:54 AM CDT 02/13/2025 5:04 AM CDT Awilda Prieto MD LAB BLOOD ORDERABLES Rocio l Result [facility] ([place]) 1 [facility] [place] [address] * Lipase (02/13/2025 4:54 AM CDT) Pathologist [facility] Lipase 27 10 - 99 Units/L Blood Venous blood specimen / Unknown 02/13/2025 4:54 AM CDT 02/13/2025 5:05 AM CDT Awilda Prieto MD LAB BLOOD ORDERABLES Rocio l Result Performing Organization Address City/[facility]/ZIP Co de Phone Number [facility] ([place]) [address] [facility] [place] [address] * (ABNORMAL) Comprehensive metabolic panel (02/13/2025 4:54 AM CDT) [facility] Sodium 140 135 - 145 mmol/L Potassium, pl 3.6 3.3 - 4.9 mmol/L [facility] ([place]) Chloride 103 97 - 110 mmol/L [facility] ([place]) CO2 21(L) 22 - 32 mmol/L [facility] ([place]) Anion gap 16(H) 2 - 15 mmol/L [facility] ([place]) BUN 8 6 - 25 mg/dL [facility] ([place]) Creatinine 0.71 0.60 - 1.10 mg/dL [facility] ([place]) Glucose 175 70 - 199 mg/dL [facility] ([place]) Comment: Interpretive Data Fasting glucose >/= 126 mg/dl is diagnostic for diabetes. Fasting is defined as no caloric intake for at least 8 hours. Fasting glucose between 100 mg/dl to 125 mg/dl is diagnostic of prediabetes. In a patient with classic symptoms of hyperglycemia or hyperglycemic crisis, a random glucose >/= 200 mg/dl is diagnostic for diabetes. In the absence of unequivocal hyperglycemia, results should be confirmed by repeat testing. The classification and Diagnosis of Diabetes Diabetes Care 2021; 46: S19-S40. Current interpretive data was last revised 2022. Calcium 9.7 8.5 - 10.3 mg/dL [facility] ([place]) Bilirubin, total 0.4 0.1 - 1.2 mg/dL [facility] ([place]) Protein, pl 7.3 6.5 - 8.5 g/dL [facility] ([place]) Albumin 4.6 3.5 - 5.0 g/dL [facility] ([place]) Alk phos 98 40 - 130 Units/L [facility] ([place]) ALT 12 7 - 45 Units/L [facility] ([place]) AST 16 10 - 45 Units/L [facility] ([place]) Blood 02/13/2025 4:54 AM CDT 02/13/2025 5:05 AM CDT Awilda Prieto MD LAB BLOOD ORDERABLES Rocio sheppard Result [facility] ([place] 1 [facility] Department [place] [address] from Last 3 Months Insurance [facility]SD [facility] CIGNA IDPA CIGNA IDPA Advance Directives For more information, please contact: [phone] * Full Code (Latest Code Status on File) Date Activated Date Inactivated Comments 06/28/2021 3:30 PM 06/29/2021 9:30 PM Care Teams Nurse Tech Relationship Specialty Start Date End Date Minh Lam DO [address] [facility] [address] [place], [place] [address] PCP - General Internal Medicine 02/13/25
--- OUTSIDE RECORDS SUMMARY | 2025-02-15 16:51 | XMS_ITS | Clinical Summary ---
Author Organization [facility] Address [address] [place] [address] Care Team Providers Care Front Office Specialist Name Role Phone Unavailable Primary Care Provider Unavailabl e Source Comments [facility],non-owned Affiliates and Associated Physician Practices is amultiple site organization consisting of ambulatory clinics and hospital sitesin [place], [place], [place] and [place]. This disclosure is being madepursuant to the Care Everywhere program and may not contain all information available regarding this patient. Last updated 18.[facility] Claim Maps Allergies No known active allergies Medications * Be aware that medications may not be up to date on this document. Alwaysverify current medications with the patient. docusate sodium (COLACE) 100 MG capsule Take 1 (one) capsule by mouth 2 times daily as needed for Constipation 45 capsule 2 Active Vit-DSS-Fe Fum-FA ( VITAMIN WITH IRON) tablet Take 1 (one) tablet by mouth once daily 30 tablet 11 2 Active ibuprofen (MOTRIN) 600 MG tablet Take 1 (one) tablet by mouth every 6 hours as needed for Pain 40 tablet 1 2 Active Active Problems No known active problems Resolved Problems Problem Noted Date Diagnosed Date Resolved Date premature rupture of membranes 11/24/2021 11/27/2021 Immunizations Immunization Administration Dates Next Due INFLUENZA VACCINE, QUADR. (F LUZONE; FLULAVAL; FLUARIX; AFLURIA QUADRIVALENT; 6MO+), 0.5 ML (IIV4) 11/27/2021(Deferred: Patient Refused) MMR 11/27/2021 TDAP (7yrs+) 11/27/2021 Social History Tobacco Use Types Packs/Day Years Used Date Smoking Tobacco: Former Smokeless Tobacco: Never Alcohol Use Standard Drinks/Week Comments Not Currently 0 (1 standard drink = 0.6 oz pur e alcohol) [place] Depression Scale Answer Date Recorded RETIRED: Total Score 5 11/25/2021 Last EPDS Self Harm Result Not on file 11/25 Comments No Sex and Gender Information Value Date Recorded Sex Assigned at Not on file Legal Sex Female 11:09 AM BAIL ATTACHER Gender Identity Not on file Sexual Orientation Not on file Last Filed Vital Signs Vital Sign Reading Time Taken Comments Blood Pressure 129/94 11/27/2021 8:05 AM BAIL ATTACHER Pulse 53 11/27/2021 8:05 AM BAIL ATTACHER Temperature 36.9 C (98.5 F) 11/27/2021 8:05 AM BAIL ATTACHER Respiratory Rate 18 11/27/2021 8:05 AM BAIL ATTACHER Oxygen Saturation 100% 11/27/2021 8:05 AM BAIL ATTACHER Inhaled Oxygen Concentration - - Weight 68.9 kg (152 lb) 11/24/2021 11:31 AM BAIL ATTACHER Height 157.5 cm (5' 2 ) 11/24/2021 11:31 AM BAIL ATTACHER Body Mass Index 27.8 11/24/2021 11:31 AM BAIL ATTACHER Plan of Treatment Health Maintenance Due Date Last Done Comments HIV SCREENING 2015 HPV VACCINE (1 - 3-dose series) 2015 HEPATITIS C SCREENING 05/01/2018 HEPATITIS B VACCINE (1 of 3 - 19+ 3-dose series) 2019 CHLAMYDIA/GONORRHEA SCREENING 11/24/2022 11/24/2021 COVID-19 VACCINE (1 - 2023-2 5 season) 2024 DEPRESSION SCREENING 09/28/2024 INFLUENZA VACCINE (Season Ended) 2025 DTAP/TDAP/TD VACCINES (2 - T d or Tdap) 11/28/2031 11/27/2021 ZOSTER VACCINE (1 of 2) 2050 HIB VACCINE Aged Out No longer eligi ble based on patient's age to complete this topic MENINGOCOCCAL (Group B) VACC INE SHARED DECISION-MAKING Aged Out No longer eligibl e based on patient's age to complete this topic MENINGOCOCCAL GROUPS A/C/Y/W VACCINE Aged Out No longer eligible b ased on patient's age to complete this topic PNEUMOCOCCAL VACCINE Aged Out No long er eligible based on patient's age to complete this topic Procedures Procedure Name Priority Date/Time Associated Diagnosis Comments CHLAMYDIA + GC AMPLIFIED PROBE Routine 11/24/2021 1:45 PM BAIL ATTACHER from Last 3 Months or Most Recently Relevant to Health Maintenance Results * CHLAMYDIA + GC AMPLIFIED PROBE (STL) (11/24/2021 1:45 PM BAIL ATTACHER) Chlamydia Amplified Probe Negative Negative 11/25/2021 11:02 AM BAIL ATTACHER [facility] MICROBIOLOGY GC Amplified Probe Negative Negative 11/25/2021 11:02 AM BAIL ATTACHER [facility] MICROBIOLOGY Microbiology ENTIRE ENDOCERVIX / Unknown Collection / Unknown 11/24/2021 1:45 PM BAIL ATTACHER 11/24/2021 1:56 PM BAIL ATTACHER Narrative [facility] MICROBIOLOGY - 11/25/2021 11:02 AM BAIL ATTACHER Results based on detection/no detection of ribosomal RNA by amplified method. Elma Gatica MD LAB - MICROBIOLOGY ORD ERABLES Final Result [facility] MICROBIOLOGY [address] [place] [address], [facility] [phone] from Last 3 Months or Most Recently Relevant to Health Maintenance [place] [facility] [place]: [address] [place] [address] [place] [facility] [place] Address: [facility] [id number] [place] [id number] Advance Directives * Full Code (Latest Code Status on File) Date Activated Date Inactivated Comments 11/24/2021 11:02 PM 11/27/2021 1:09 PM * Full Code Date Activated Date Inactivated Comments 11/24/2021 12:16 PM 11/24/2021 11:02 PM
--- OUTSIDE RECORDS SUMMARY | 2025-02-15 16:51 | XMS_ITS | Referral Summary ---
Author Organization [facility] Address [address] [place] [address] Care Team Providers Care Medical Information Specialist Name Role Phone Minh Lam DO Primary Care Provider [phone] Encounters Date Type Department Care Team Description 02/13/2025 5:16 AM CDT - 02/13/2025 9:12 AM CDT Emergency [facility] Emergency Department [address] [place] [address] Awilda Prieto MD Nausea and vomiting, unspecified vomiting type (Primary Dx) Discharge Disposition: Discharge to home or self care from Last 3 Months Allergies No known active allergies Medications famotidine [...] day as needed (nausea) 60 tablet 1 021 Active guaiFENesin ER (MUCINEX) 600 mg 12 hr tablet Take 1 tablet (600 mg total) by mouth 2 (two) times a day 60 tablet 1 022 Active ondansetron ODT (ZOFRAN-ODT) 4 mg disintegrating [...] Problem Noted Date Diagnosed Date Hyperemesis 06/28/2021 Social History Tobacco Use Types Packs/Day Years [...] on file 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 Source: [place] Current Interpretive Data was last revised on 2017 Protein, ur ql Negative Negative [facility] ([place]) Glucose, ur ql Negative Negative [facility] ([place]) Ketones, ur 1+(A) Negative [facility] ([place]) Bilirubin, ur Negative Negative [facility] ([place]) Blood, ur 3+(A) Negative [facility] ([place]) Urobilinogen, ur <2.0 <2.0 mg/dL [facility] ([place]) Nitrite, ur Negative Negative [facility] ([place]) Leukocyte esterase, ur Negative Negative [facility] ([place]) UA reflex comment Reflex to microscopic UA will be performed. [facility] ([place]) Urine 02/13/2025 7:47 AM CDT 02/13/2025 8:03 AM CDT Awilda Prieto MD LAB MICROBIOLOGY - GENERA L ORDERABLES Final Result [facility] ([place]) 1 [facility] [place] [address] * hCG, urine, qualitative (02/13/2025 7:47 AM CDT) HCG, ur Negative Negative Urine 02/13/2025 7:47 AM CDT 02/13/2025 8:18 AM CDT Awilda Prieto MD LAB URINE ORDERABLES Rocio l Result Performing Organization Address City/[facility] Co de Phone Number [facility] ([place]) 1 [facility] [place] [address] * (ABNORMAL) Urinalysis, microscopic only (02/13/2025 7:47 AM CDT) WBC, ur 0-5 0 - 5 /HPF RBC, ur 11-20(A) 0 - 2 /HPF [facility] ([place]) Epithelial cells, squamous, ur 1-5 0 - 5 /HPF [facility] ([place]) Mucous, ur Present(A) [facility] ([place]) Culture Reflex Comment Reflex conditions for urine culture (WBC >10) not met. [facility] ([place]) Urine 02/13/2025 7:47 AM CDT 02/13/2025 8:03 AM CDT Rebekah Whaley MD LAB URINE ORDERABLES Final Resul t Performing Organization Address City/[facility]/ZIP Co de Phone Number [facility] ([place]) 1 [facility] Department [place] [address] * eGFR (02/13/2025 4:54 AM CDT) eGFR [...] of Race in Diagnosing Kidney Disease, JASN 2020). The CKD-EPI equation should not be used for patients with unstable renal function and has not been validated in children and those over 70. Current interpretive data was last reviewed 2021. Blood 02/13/2025 4:54 AM CDT 02/13/2025 5:05 AM CDT Awilda Prieto MD LAB BLOOD ORDERABLES Rocio l Result [facility] ([place]) 1 [facility] Department [place] [address] * (ABNORMAL) Differential, auto (02/13/2025 4:54 AM CDT) Neutrophil abs 7.70(H) 1.50 - 6.50 K/cumm Imm gran abs 0.04 0.00 - 0.10 K/cumm [facility] ([place]) Lymphocyte abs 1.57 0.80 - 3.30 K/cumm [facility] ([place]) Monocyte abs 0.73 0.20 - 0.80 K/cumm [facility] ([place]) Eosinophil abs 0.21 0.00 - 0.50 K/cumm [facility] ([place]) Basophil abs 0.07 0.00 - 0.10 K/cumm [facility] ([place]) Neutrophil pct 74.6 % [facility] ([place]) Comment: Interpretive Data Percent cell count reference ranges are not reported, since discordance with absolute values may lead to misinterpretation of CBC data. Current Interpretive Data was last revised on 2018. Imm gran pct 0.4 % [facility] ([place]) Comment: Interpretive Data Percent cell count reference ranges are not reported, since discordance with absolute values may lead to misinterpretation of CBC data. Current Interpretive Data was last revised on 2018. Lymphocyte pct 15.2 % [facility] ([place]) Comment: Interpretive Data Percent cell count reference ranges are not reported, since discordance with absolute values may lead to misinterpretation of CBC data. Current Interpretive Data was last revised on 2018. Monocyte pct 7.1 % [facility] ([place]) Comment: Interpretive Data [...] 2018. Basophil pct 0.7 % [facility] ([place]) Comment: Interpretive Data Percent cell count reference ranges are not reported, since discordance with absolute values may lead to misinterpretation of CBC data. Current Interpretive Data was last revised on 2018. Blood 02/13/2025 4:54 AM CDT 02/13/2025 5:04 AM CDT us Awilda Prieto MD LAB BLOOD ORDERABLES Rocio valarie Result [facility] ([place]) 1 [facility] Department [place] [address] * (ABNORMAL) CBC with auto differential (02/13/2025 [...] MD LAB BLOOD ORDERABLES Rocio l Result [facility] ([place]) 1 [facility] [place] [address] * Lipase (02/13/2025 4:54 AM CDT) Lipase 27 10 - 99 Units/L Blood Venous blood specimen / Unknown 02/13/2025 4:54 AM CDT 02/13/2025 5:05 AM CDT Awilda Prieto MD LAB BLOOD ORDERABLES Rocio l Result [facility] ([place]) 1 [facility] [place] [address] * (ABNORMAL) Comprehensive metabolic panel (02/13/2025 4:54 AM CDT) Sodium 140 135 - 145 mmol/L Potassium, pl 3.6 3.3 - 4.9 mmol/L [facility] ([place]) Chloride 103 97 - 110 mmol/L [facility] ([place]) CO2 21(L) 22 - 32 mmol/L [facility] ([place]) Anion gap 16(H) 2 - 15 mmol/L [facility] ([place]) BUN 8 6 - 25 mg/dL [facility] ([place]) Creatinine 0.71 0.60 - 1.10 mg/dL [facility] ([place]) Glucose 175 70 - 199 mg/dL [facility] ([place]) Comment: Interpretive Data Fasting glucose >/= [...] classification and Diagnosis of Diabetes Diabetes Care 202; 46: S19-S40. Current interpretive data was last [...] MD LAB BLOOD ORDERABLES Rocio sheppard Result [facility] [place] 1 [facility] [place] [address] from Last 3 Months Insurance [facility] HMO/PPO Address: [address] [address] IDPA CIG IDPA Advance Directives For more information, please contact: [phone] * Full Code (Latest Code Status on File) Date Activated Date Inactivated Comments 06/28/2021 3:30 PM 06/29/2021 9:30 PM Care Teams Medical Information Specialist Relationship Specialty Start Date End Date Minh Lam DO [address] [address] PCP - General Internal Medicine 02/13/25
[2025-02-15 17:54] LABS: Basophils Percent Auto 0.3 % (0.2-1.2); Eosinophils Percent Auto 0.1 % (0-4.4); Hemoglobin 13.5 g/dL (12.0-15.0); Immature Granulocyte Absolute 0.02 K/mm3 (0.00-0.031); Immature Granulocyte Percent A 0.2 % (0-0.5); Lymphocytes Absolute Auto 0.71 K/mm3 (0.9-3.2); Lymphocytes Percent Auto 7.9 % (18.3-44.2); Mean Corpuscular HGB Conc 32.9 g/dl (32-36); Mean Corpuscular Hemoglobin 29.7 pg (26-34); Mean Corpuscular Volume 90.3 fl (80-100); Mean Platelet Volume 9.5 fl (7.4-10.4); Monocytes Absolute Auto 0.5 K/mm3 (0.1-0.6); Monocytes Percent Auto 5.3 % (2.6-8.5); Neutrophils Absolute Auto 7.8 K/mm3 (1.3-6.7); Neutrophils Percent Auto 86.2 % (45.5-73.1); Platelet Count Result 312 k/mm3 (150-375); Red Blood Count 4.54 M/mm3 (4.2-5.4); Red Cell Distribution Width 13.1 % (11.5-14.5)
[2025-02-15 19:11] LABS: Alanine Aminotransferase 19 U/L (6-35); Albumin Level 4.9 g/dL (3.5-5.1); Alkaline Phosphatase 82 U/L (38-126); Anion Gap 9 mmol/L (4-12); Aspartate Amino Transferase 27 U/L (14-36); Bilirubin,Total 0.8 mg/dL (0.2-1.3); Blood Urea Nitrogen 10 mg/dL (7-17); Calcium 9.4 mg/dL (8.4-10.2); Carbon Dioxide 26 mmol/L (22-30); Chloride 102 mmol/L (98-107); Estimated Glomerular Filt Rate > 60; Glucose 100 mg/dL (65-110); Lipase 52 U/L (23-300); Potassium 3.5 mmol/L (3.4-5.0); Sodium 137 mmol/L (137-145)
== END 2025-02-15 16:49 | disposition home or self-care (01) ==
PROVIDERS: PCP Internal Medicine; Visit Provider Internal Medicine
DX: R10.9 Unspecified abdominal pain (principal)
CPT/HCPCS: 36415; 74018; 80053; 83690; 85025

== ENCOUNTER 2025-02-16 10:38 | Outpatient (CLI) | payer OTHER, MEDICAID, SELFPAY ==
--- NOTE | ~2025-02-16 | CT_ITS ---
EXAMINATION: CT abdomen pelvis wo con DATE: 02/16/2025 10:53 INDICATION: Abdominal pain TECHNIQUE: Computed tomography (CT) of the abdomen and pelvis was performed without intravenous contr ast. Automated exposure control and iterative reconstruction technique were employed. The dose-length product was 237.72 mGy-cm. COMPARISON: None FINDINGS: Lung bases are clear. Heart size is normal. No pericardial or pleural effusion. Liver, gallbladder, s pleen, pancreas, bilateral adrenal glands and kidneys are normal. Bowels including the appendix are n ormal. Bladder, uterus and bilateral adnexa are unremarkable. Minimal amount of likely physiologic fr ee fluid in the cul-de-sac. No abscess or free intraperitoneal gas. Mild to moderate thoracic and mil d lumbar spondylosis. IMPRESSION: 1. No acute intra-abdominal/pelvic process. Reviewed, dictated and finalized at location A.
--- OUTSIDE RECORDS SUMMARY | 2025-02-16 10:44 | XMS_ITS | Referral Summary ---
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 pH may affect urinary stone formation. For example, urine pH below 6.0 may help reduce the tendency for calcium phosphate stones and pH greater than 6.0 may reduce the tendency for uric acid stone formation. Source: [employer] Current Interpretive Data was last revised on 2017 Protein, ur ql Negative Negative [facility] ([place]) Glucose, ur ql Negative Negative [facility] ([place]) Ketones, ur 1+(A) Negative [facility] ([place]) Bilirubin, ur Negative Negative [facility] ([place]) Blood, ur 3+(A) Negative [facility] ([place]) Urobilinogen, ur <2.0 <2.0 mg/dL [facility] ([place]) Nitrite, ur Negative Negative [facility] ([place]) Leukocyte esterase, ur Negative Negative [facility] ([place]) UA reflex comment Reflex to microscopic UA will be performed. [facility] ([place]) Urine 02/13/2025 7:47 AM CDT 02/13/2025 8:03 AM CDT Awilda Prieto MD LAB MICROBIOLOGY - GENERA L ORDERABLES Final Result [facility] ([place]) 1 [facility] [place] [address] * hCG, urine, qualitative (02/13/2025 7:47 AM CDT) HCG, ur Negative Negative Urine 02/13/2025 7:47 AM CDT 02/13/2025 8:18 AM CDT Awilda Prieto MD LAB URINE ORDERABLES Rocio l Result Performing Organization Address City/[facility] Co de Phone Number [facility] ([place]) 1 [facility] [place] [address] * (ABNORMAL) Urinalysis, microscopic only (02/13/2025 7:47 AM CDT) WBC, ur 0-5 0 - 5 /HPF RBC, ur 11-20(A) 0 - 2 /HPF [facility] ([place]) Epithelial cells, squamous, ur 1-5 0 - 5 /HPF [facility] ([place]) Mucous, ur Present(A) [facility] ([place]) Culture Reflex Comment Reflex conditions for urine culture (WBC >10) not met. [facility] ([place]) Urine 02/13/2025 7:47 AM CDT 02/13/2025 8:03 AM CDT Rebekah Whaley MD LAB URINE ORDERABLES Final Resul t Performing Organization Address City/[facility]/ZIP Co de Phone Number [facility] ([place]) 1 [facility] Department [place] [address] * eGFR (02/13/2025 4:54 AM CDT) eGFR [...] BLOOD ORDERABLES Rocio l Result [facility] ([place]) 1 [facility] Department [place] [address] * (ABNORMAL) Differential, auto (02/13/2025 4:54 AM [...] Lymphocyte pct 15.2 % [facility] ([place]) Comment: Interpretive Data Percent cell count reference [...] 2018. Basophil pct 0.7 % [facility] ([place]) Comment: Interpretive Data Percent cell count reference ranges are not reported, since discordance with absolute values may lead to misinterpretation of CBC data. Current Interpretive Data was last revised on 2018. Blood 02/13/2025 4:54 AM CDT 02/13/2025 5:04 AM CDT us Awilda Prieto MD LAB BLOOD ORDERABLES Rocio valarie Result [facility] ([place]) 1 [facility] Department [place] [address] * (ABNORMAL) CBC with auto differential (02/13/2025 [...] BLOOD ORDERABLES Rocio l Result [facility] ([place]) 1 [facility] Department [place] [address] * Lipase (02/13/2025 4:54 AM CDT) Lipase 27 10 - 99 Units/L Blood Venous blood specimen / Unknown 02/13/2025 4:54 AM CDT 02/13/2025 5:05 AM CDT Awilda Prieto MD LAB BLOOD ORDERABLES Rocio l Result [facility] ([place]) 1 [facility] Department [place] [address] * (ABNORMAL) Comprehensive metabolic panel (02/13/2025 4:54 [...] Rocio sheppard Result [facility] [place] 1 [facility] Department [place] [address] from Last 3 Months Insurance [facility] IDPA CIG IDPA Advance Directives For more information, please contact: [phone] * Full Code (Latest Code Status on File) Date Activated Date Inactivated Comments 06/28/2021 3:30 PM 06/29/2021 9:30 PM Care Teams Licensed Prosthetist/Orthotist Relationship Specialty Start Date End Date Minh Lam DO [address] [address] PCP - General Internal Medicine 02/13/25
--- OUTSIDE RECORDS SUMMARY | 2025-02-16 10:44 | XMS_ITS | Clinical Summary ---
Author Organization [facility] Address [address] [facility] [place] [address] Care Team Providers Care Financial Associate Name Role Phone Unavailable Primary Care Provider Unavailabl e Source Comments [facility],non-owned Affiliates and Associated Physician Practices is amultiple site organization consisting of ambulatory clinics and hospital sitesin [place], [place], [place] and [place]. This disclosure is being madepursuant to the Care Everywhere program and may not contain all information available regarding this patient. Last updated 18.[facility] [employer] Allergies No known active allergies Medications * [...] drink = 0.6 oz pur e alcohol) [place] Depression Scale Answer Date Recorded RETIRED: Total Score 5 11/25/2021 Last EPDS Self Harm Result Not on file 11/25 Comments No Sex and Gender Information Value Date Recorded Sex Assigned at Not on file Legal Sex Female 11:09 AM COUNTER WAITRESS/WAITER Gender Identity Not on file Sexual Orientation Not on file Last Filed Vital Signs Vital Sign Reading Time Taken Comments Blood Pressure 129/94 11/27/2021 8:05 AM COUNTER WAITRESS/WAITER Pulse 53 11/27/2021 8:05 AM COUNTER WAITRESS/WAITER Temperature 36.9 C (98.5 F) 11/27/2021 8:05 AM COUNTER WAITRESS/WAITER Respiratory Rate 18 11/27/2021 8:05 AM COUNTER WAITRESS/WAITER Oxygen Saturation 100% 11/27/2021 8:05 AM COUNTER WAITRESS/WAITER Inhaled Oxygen Concentration - - Weight 68.9 kg (152 lb) 11/24/2021 11:31 AM COUNTER WAITRESS/WAITER Height 157.5 cm (5' 2 ) 11/24/2021 11:31 AM COUNTER WAITRESS/WAITER Body Mass Index 27.8 11/24/2021 11:31 AM COUNTER WAITRESS/WAITER Plan of Treatment Health Maintenance Due Date [...] GC AMPLIFIED PROBE Routine 11/24/2021 1:45 PM COUNTER WAITRESS/WAITER from Last 3 Months or Most Recently Relevant to Health Maintenance Results * CHLAMYDIA + GC AMPLIFIED PROBE (STL) (11/24/2021 1:45 PM COUNTER WAITRESS/WAITER) Chlamydia Amplified Probe Negative Negative 11/25/2021 11:02 AM COUNTER WAITRESS/WAITER [facility] MICROBIOLOGY GC Amplified Probe Negative Negative 11/25/2021 11:02 AM COUNTER WAITRESS/WAITER [facility] MICROBIOLOGY Microbiology ENTIRE ENDOCERVIX / Unknown Collection / Unknown 11/24/2021 1:45 PM COUNTER WAITRESS/WAITER 11/24/2021 1:56 PM COUNTER WAITRESS/WAITER Narrative [facility] MICROBIOLOGY - 11/25/2021 11:02 AM COUNTER WAITRESS/WAITER Results based on detection/no detection of ribosomal RNA by amplified method. Elma Gatica MD LAB - MICROBIOLOGY ORD ERABLES Final Result [facility] MICROBIOLOGY [address] [place] [address], [facility] [phone] from Last 3 Months or Most Recently Relevant to Health Maintenance Insurance [employer] [facility] Address: [address] [place] [address] [place] [facility] Address[facility] [id number] [place] [id number] Advance Directives * Full Code (Latest Code Status on File) Date Activated Date Inactivated Comments 11/24/2021 11:02 PM 11/27/2021 1:09 PM * Full Code Date Activated Date Inactivated Comments 11/24/2021 12:16 PM 11/24/2021 11:02 PM
--- OUTSIDE RECORDS SUMMARY | 2025-02-16 10:44 | XMS_ITS | Patient Health Record ---
Author Organization [facility] Address [address] [place] [address] Care Team Providers Care Culinary Arts Teacher Name Role Phone Nemo Omalley Primary Care Provider Allergies No Known Allergies Reason For Referral No Information Medications Medication SIG (Take, Route, Frequency, Duration) Notes Start Date End Date Status Mirtazapine 15 MG 1 tablet at bedtime Orally Once a day for 30 days Active hydrOXYzine HCl 25 MG 1 tablet as needed Orally Once a day for 30 days Active Venlafaxine HCl ER 75 MG 1 capsule with food Orally Once a day for 30 days Active Problems Problem Type SNOMED Code ICD Code Onset Dates Problem Status W/U Status Risk Notes Problem [id number] Major depressive disorder, recurrent, moderate (F33.1) Active confirmed Problem [id number] Generalized anxiety disorder (F41.1) Active confirmed Plan Of Treatment No Information Insurance Providers Payer Name Payer Address Payer Phone Subscriber Number Group Number Insured Name Patient Relationship to Insured Coverage Start Date Coverage End Date [facility] [address] [address] [place] [address] [id number] GeorgePois Self - patient is the insured 1 Medical (General) History Surgical History Surgery Date(Month/Year)
--- OUTSIDE RECORDS SUMMARY | 2025-02-16 10:44 | XMS_ITS | Clinical Summary ---
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 Source: [facility] Current Interpretive Data was last revised [...] L ORDERABLES Final Result Performing Organization Address [facility] Co de Phone Number [facility] ([place]) 1 [facility] [place] [address] * hCG, urine, qualitative (02/13/2025 7:47 AM CDT) HCG, ur Negative Negative Urine 02/13/2025 7:47 AM CDT 02/13/2025 8:18 AM CDT Awilda Prieto MD LAB URINE ORDERABLES Rocio l Result Performing Organization Address City/[facility]/ZIP Co de Phone Number [facility] ([place] 1 [facility] [place] [address] * (ABNORMAL) Urinalysis, microscopic only (02/13/2025 7:47 AM CDT) WBC, ur 0-5 0 - 5 /HPF RBC, ur 11-20(A) 0 - 2 /HPF [facility] ([place]) Epithelial cells, squamous, ur 1-5 0 - 5 /HPF [facility] ([place]) Mucous, ur Present(A) [facility] ([place]) Culture Reflex Comment Reflex conditions for urine culture (WBC >10) not met. [facility] ([place]) Urine 02/13/2025 7:47 AM CDT 02/13/2025 8:03 AM CDT us Rebekah Whaley MD LAB URINE ORDERABLES Final Resul t [facility] ([place]) 1 [facility] Department [place] [address] * eGFR (02/13/2025 4:54 AM CDT) eGFR [...] BLOOD ORDERABLES Rocio sheppard Result [facility] ([place]) 1 [facility] [place] [address] * (ABNORMAL) Differential, auto (02/13/2025 4:54 AM CDT) Neutrophil abs 7.70(H) 1.50 - 6.50 K/cumm Imm gran abs 0.04 0.00 - 0.10 K/cumm [facility] ([place]) Lymphocyte abs 1.57 0.80 - 3.30 K/cumm [facility] ([place]) Monocyte abs 0.73 0.20 - 0.80 K/cumm [facility] ([place]) Eosinophil abs 0.21 0.00 - 0.50 K/cumm [facility] ([place]) Basophil abs 0.07 0.00 - 0.10 K/cumm [facility] ([place]) Neutrophil pct 74.6 % [facility] ([place]) Comment: Interpretive Data Percent cell count reference ranges are not reported, since discordance with absolute values may lead to misinterpretation of CBC data. Current Interpretive Data was last revised on 2018. Imm gran pct 0.4 % [facility] ([place]) Comment: Interpretive Data Percent cell count reference ranges are not reported, since discordance with absolute values may lead to misinterpretation of CBC data. Current Interpretive Data was last revised on 2018. Lymphocyte pct 15.2 % [facility] ([place]) Comment: Interpretive Data Percent cell count reference ranges are not reported, since discordance with absolute values may lead to misinterpretation of CBC data. Current Interpretive Data was last revised on 2018. Monocyte pct 7.1 % [facility] ([place]) Comment: Interpretive Data Percent cell count reference [...] Rocio sheppard Result [facility] ([place]) 1 [facility] [place] [address] * (ABNORMAL) CBC with auto differential (02/13/2025 [...] Rocio l Result [facility] ([place]) 1 [facility] [address] [place] [address] * Lipase (02/13/2025 4:54 AM CDT) Pathologist [facility] Lipase 27 10 - 99 Units/L Blood Venous blood specimen / Unknown 02/13/2025 4:54 AM CDT 02/13/2025 5:05 AM CDT Awilda Priteo MD LAB BLOOD ORDERABLES Rocio l Result Performing Organization Address City/[facility]/ZIP Co de Phone Number [facility] ([place]) 1 [facility] [address] [place] [address] * (ABNORMAL) Comprehensive metabolic panel (02/13/2025 4:54 AM CDT) [facility] Sodium 140 135 - 145 mmol/L Potassium, pl 3.6 3.3 - 4.9 mmol/L [facility] ([place]) Chloride 103 97 - 110 mmol/L [facility] ([place]) CO2 21(L) 22 - 32 mmol/L [facility] ([place]) Anion gap 16(H) 2 - 15 mmol/L [facility] ([place]) BUN 8 6 - 25 mg/dL [facility] ([place]) Creatinine 0.71 0.60 - 1.10 mg/dL [facility] ([place]) Glucose 175 70 - 199 mg/dL [facility] ([place]) Comment: Interpretive Data Fasting glucose >/= [...] MD LAB BLOOD ORDERABLES Rocio sheppard Result [facility] ([place] 1 [facility] [place] [address] from Last 3 Months Insurance [facility] [employer]PA [employer] IDPA Advance Directives For more information, please contact: [phone] * Full Code (Latest Code Status on File) Date Activated Date Inactivated Comments 06/28/2021 3:30 PM 06/29/2021 9:30 PM Care Teams Computer Discovery Teacher Relationship Specialty Start Date End Date Minh Lam DO [address] [facility] [address] [place], [place] [id number] PCP - General Internal Medicine 02/13/25
== END 2025-02-16 10:39 | disposition home or self-care (01) ==
PROVIDERS: PCP Internal Medicine; Visit Provider Internal Medicine
DX: R10.9 Unspecified abdominal pain (principal); R11.2 Nausea with vomiting, unspecified
CPT/HCPCS: 74176

== ENCOUNTER 2025-02-21 08:31 | Outpatient (CLI) | payer OTHER, MEDICAID, SELFPAY ==
--- NOTE | ~2025-02-21 | US_ITS ---
Limited Abdominal Sonogram: Real-time sonographic imaging of the right upper quadrant was performed. Clinical History: Abdominal pain Findings: The liver appears normal with no evidence of mass lesion or bile duct dilatation. Main por dayanna vein demonstrates normal direction of flow. The gallbladder is well distended, and images minimal debris/sludge. The common bile duct measures 2 mm. The visualized pancreas, aorta, and IVC are unre markable. Impression: Minimal gallbladder debris/sludge. Reviewed, dictated and finalized at location M. Impression: Minimal gallbladder debris/sludge.
== END 2025-02-21 08:32 | disposition home or self-care (01) ==
LOC: MICIMG 08:31
PROVIDERS: PCP Internal Medicine; Visit Provider Internal Medicine
DX: R10.9 Unspecified abdominal pain (principal)
CPT/HCPCS: 76705

== ENCOUNTER 2025-03-03 08:13 | Outpatient (CLI) | payer OTHER, MEDICAID, SELFPAY ==
--- NOTE | ~2025-03-03 | NM_ITS ---
EXAMINATION: NM hepatobiliary w pharm DATE: 03/03/2025 10:18 INDICATION: Right upper quadrant abdominal pain COMPARISON: None. TECHNIQUE: 4.72 mCi Tc-99m mebrofenin (Choletec) was administered intravenously. Scintigraphic image s of the abdomen were obtained for one hour. 1 mcg sincalide (Kinevac) was administered by slow intra venous infusion, and imaging was continued for 30 minutes. Gallbladder ejection fraction was calculat ed by the technologist. FINDINGS: There is normal clearance of radiotracer from the blood pool. There is homogeneous tracer uptake by t he liver. Activity progresses to the gallbladder and bowel. The gallbladder ejection fraction (GBEF) is 5% (normal 10-90%, but most patient with gallbladder dysfunction have GBEF < 35% which does overl ap with the normal range). IMPRESSION: 1. Gallbladder ejection fraction below normal limits consistent with gallbladder dysfunction or projector operator glynn cholecystitis in the appropriate clinical setting. Reviewed, dictated and finalized at location A. IMPRESSION: 1. Gallbladder ejection fraction below normal limits consistent with gallbladd er dysfunction or chronic cholecystitis in the appropriate clinical setting.
--- OUTSIDE RECORDS SUMMARY | 2025-03-03 08:19 | XMS_ITS | Data Portability ---
Author Organization [facility], [facility] Address [address] [place] [address] Assessment No assessment recorded. Plan of Treatment Reminders Order Date Submit Date Provider Last Modified By Organization Details Last Modified Time Details Appointments None recorded. Lab None recorded. Referral None recorded. Procedures None recorded. Surgeries None recorded. Imaging US, obstetric, limited 2021 [email or web address] Not available 13:50:09 Medication Orders Zoloft 50 mg tablet 2021 022 LIV[id number], [address], [place], [id number], 21:04:25 NuvaRing 0.12 mg-0.015 mg/24 hr vaginal 2021 022 [email or web address] [facility][id number], [address], [place], [id number], 10:18:16 Patient TargetsNo targets recorded. Patient Instructions Encounter Date Encounter Id Patient Instructions Last Modified By Organization Details Last Modified Time 12/12/2021 [id number] Care at Home With Your Baby: Care Instructions Not available 12/15/2021 15:40:29 control after counseling [email or web address] Not available 12/15/2021 15:40:29 edinburgh depression scale* [email or web address] Not available 03/11/2022 12:54:33 01/07/2022 [id number] Care at Home With Your Baby: Care Instructions [email or web address] Not available 01/07/2022 16:47:42 edinburgh depression scale* [email or web address] Not available 02/11/2022 11:56:36 control after counseling tcarrell Not available 01/07/2022 16:47:42 07/21/2022 [id number] depression after childbirth: care instructions [email or web address] Not available 07/21/2022 10:29:18 edinburgh depression scale* [email or web address] Not available 08/01/2022 11:22:56 Reason for Referral None Reported. Results Created Date Observation Date Name Description Value Unit Range Abnormal Flag Note LastModifiedBy Organization Detail LastModifiedTime 11/13/19 22 11/15/2021 GLUCO SE, GESTA SUJIT L SCREE N (50G) -135 CUTOF F glucose, gestational screen (50g)-135 cutoff 108 mg/dL <135 normal Not Available [address], [address], 11/15/2021 10:32:25 11/13/19 22 11/15/2021 CBC (INCL UDES DIFF/ PLT) white blood cell count 11.2 thous and/u L 3.8-10 .8 high Not Available [address], [address], 11/15/2021 10:32:26 11/13/19 22 11/15/2021 CBC (INCL UDES DIFF/ PLT) red blood cell count 4.39 nataly on/uL 3.80-5 .10 normal Not Available [address], [address], 11/15/2021 10:32:26 11/13/19 22 11/15/2021 CBC (INCL UDES DIFF/ PLT) hemoglobin 13.0 g/dL 11.7-1 5.5 normal Not Available [address], [address], 11/15/2021 10:32:26 11/13/19 22 11/15/2021 CBC (INCL UDES DIFF/ PLT) hematocrit 39.5 % 35.0-4 5.0 normal Not Available [address], [address], 11/15/2021 10:32:26 11/13/19 22 11/15/2021 CBC (INCL UDES DIFF/ PLT) MCV 90.0 fL 80.0-1 00.0 normal Not Available [address], [address], 11/15/2021 10:32:26 11/13/19 22 11/15/2021 CBC (INCL UDES DIFF/ PLT) MCH 29.6 pg 27.0-3 3.0 normal Not Available [address], [address], 11/15/2021 10:32:26 11/13/19 22 11/15/2021 CBC (INCL UDES DIFF/ PLT) MCHC 32.9 g/dL 32.0-3 6.0 normal Not Available [address], [address], 11/15/2021 10:32:26 11/13/19 22 11/15/2021 CBC (INCL UDES DIFF/ PLT) RDW 12.5 % 11.0-1 5.0 normal Not Available [address], [address], 11/15/2021 10:32:26 11/13/19 22 11/15/2021 CBC (INCL UDES DIFF/ PLT) platelet count 312 thous and/u L 140-40 0 normal Not Available [address], [address], 11/15/2021 10:32:26 11/13/19 22 11/15/2021 CBC (INCL UDES DIFF/ PLT) MPV 10.2 fL 7.5-12 .5 normal Not Available [address], [address], 11/15/2021 10:32:26 11/13/19 22 11/15/2021 CBC (INCL UDES DIFF/ PLT) absolute neutrophils 8781 cells /uL 1500-7 800 high Not Available [address], [address], 11/15/2021 10:32:26 11/13/19 22 11/15/2021 CBC (INCL UDES DIFF/ PLT) absolute lymphocytes 1568 cells /uL 850-39 00 normal Not Available [address], [address], 11/15/2021 10:32:26 11/13/19 22 11/15/2021 CBC (INCL UDES DIFF/ PLT) absolute monocytes 582 cells /uL 200-95 0 normal Not Available [address], [address], 11/15/2021 10:32:26 11/13/19 22 11/15/2021 CBC (INCL UDES DIFF/ PLT) absolute eosinophils 224 cells /uL 15-500 normal Not Available [address], [address], 11/15/2021 10:32:26 11/13/19 22 11/15/2021 CBC (INCL UDES DIFF/ PLT) absolute basophils 45 cells /uL 0-200 normal Not Available [address], [address], 11/15/2021 10:32:26 11/13/19 22 11/15/2021 CBC (INCL UDES DIFF/ PLT) neutrophils 78.4 % normal Not Available [address], [address], 11/15/2021 10:32:26 11/13/19 22 11/15/2021 CBC (INCL UDES DIFF/ PLT) lymphocytes 14.0 % normal Not Available [address] [place], [address], 11/15/2021 10:32:26 11/13/19 22 11/15/2021 CBC (INCL UDES DIFF/ PLT) monocytes 5.2 % normal Not Available [facility] [place] [address] [place], [address], 11/15/2021 10:32:26 11/13/19 22 11/15/2021 CBC (INCL UDES DIFF/ PLT) eosinophils 2.0 % normal Not Available [facility] [place] [address] [place], [address], 11/15/2021 10:32:26 11/13/19 22 11/15/2021 CBC (INCL UDES DIFF/ PLT) basophils 0.4 % normal Not Available [facility] [place] [address] [place], [address], 11/15/2021 10:32:26 11/13/19 22 11/15/2021 HIV 1/2 ANTIG EN/AN TIBOD Y,FOU RTH GENER ATION W/RFL HIV Ag/Ab, 4TH gen NON-RE ACTIVE non-re active normal HIV-1 antig en and HIV-1 /HIV- 2 antib odies were not detec kayla. There is no labor atory evide nce of HIV infec tion. PLEAS E NOTE: This infor matio n has been discl osed to you from recor ds whose confi denti ality may be prote cted by state law. If your state requi res such prote ction , then the state law prohi bits you from serafin ocampo furashlyn er discl osure of the infor matio n witho ut the speci fic writt en conse nt of the perso n to whom it perta ins, or as other phillip permi tted by law. A gener al autho rizat ion for the relea se of medic al or other infor matio n is NOT suffi cient for this purpo se. For addit ional infor matio n pleas e refer to http: //[facility] catio n.que stdia gnost ics.c om/fa q/FAQ 106 (This link is being provi ded for infor matio nal/ educa sujit l purpo ses only. ) The perfo rmanc e of this assay has not been clini madelyn valid ated in patie nts less than 2 years old. Not Available [facility] [address] [place], [address], 11/15/2021 10:32:26 11/13/19 22 11/15/2021 RPR (DX) W/REF L TITER AND CONFI RMATO RY TESTI NG RPR (DX) w/refl titer and confirmatory testing NON-RE ACTIVE non-re active normal Not Available [facility] [address], [place], [address], 11/15/2021 10:32:27 10/11/19 22 10/11/2021 US, obste tric, mater nal evalu ation + anato my No observ ation record ed. [email or web address] [address], [place], [address], 10/11/2021 15:26:23 11/10/19 22 11/08/2021 US, obste tric, limit ed No observ ation record ed. [email or web address] [address], [place], [address], 11/13/2021 21:49:02 Result Notes None recorded. Problems Name Problem SNOMED Code Status Onset Date Resolution Date Notes Provider Name and Address Organization Details Recorded Time Syphilis test finding 983222503 Completed 201806/07/2021 Encounte r for screenin g for infectio ns with a predomin antly sexual mode of transmis symone; Progress : Stable Added By: Deanna Rodriguez Add to Current Problems : NO ProblemS tatus: Resolve Not Available [facility] 21:38:41 Sampling of vagina for Papanico laou smear Completed 201809/02/2021 Encounte r for gynecolo gical examinat ion (general ) (routine ) without abnormal findings ; Severity : Moderate Progress : Stable Added By: Deanna Rodriguez Add to Current Problems : YES ProblemS tatus: Current CHIO MURILLO CNM [address] [place], [address] , [facility] [employer] 1 10:33:54 Uses contrace ption 25079567 Completed 201701/19/2018 Follow-u p visit for other contrace ption method; Location : None Severity : Moderate Progress : Stable Added By: Kiersten Gan Add to Current Problems : YES ProblemS tatus: Resolve Not Available [facility] 19:48:07 Exposure to sexually transmis sible disorder Completed 201701/19/2018 Contact with and (suspect ed) exposure to infectio ns with a predomin antly sexual mode of transmis symone; Progress : Stable Added By: Kiersten Gan Add to Current Problems : NO ProblemS tatus: Resolve STD Exposure ; Location : None Progress : Stable Added By: Kiersten Gan Add to Current Problems : YES ProblemS tatus: Resolve Not Available [facility] 2 21:38:40 Gestatio n period, 10 weeks 78306129 Completed 202009/02/2021 10 weeks gestatio n of pregnanc y; Severity : Moderate Progress : Stable Added By: Deanna Rodriguez Add to Current Problems : YES ProblemS tatus: Current CHIO KAMIJAIMIE TANNER [address] [place], [address] , [facility] 1 10:33:48 Gestatio n less than 9 weeks 047584171 Completed 202009/02/2021 Less than 8 weeks gestatio n of pregnanc y; Severity : Moderate Progress : Stable Added By: Deanna Rodriguez Add to Current Problems : YES ProblemS tatus: Current CHIO MURILLO CNM [address] [place], [address] , [facility] 1 10:33:46 Pregnanc y, childbir th and puerperi um finding Completed 202010/11/2021 Encounte r for supervis ion of normal first pregnanc y, first trimeste r; Severity : Moderate Progress : Stable Added By: Deanna Rodriguez Add to Current Problems : YES ProblemS tatus: Current Camilla Marie MD [address] [place] [address], [phone] , [facility] 2 13:09:20 Pregnanc y 36991178 Completed 202012/15/2021 Jackeline Vasquez MD [address] [place] [address], [phone] , [facility] 2 15:42:53 History of depressi on 269022373 Completed mood stable Jackeline Vasquez MD [address] [place] [address], [phone] , [facility] 2 15:42:49 Asthma 257445394 Completed no meds Jackeline Vasquez MD [address] [place] [address], [phone] , [facility] 2 15:42:49 Hypereme sis gravidar 62215514 Completed resolvin g, zofran 2-3x daily Jackeline Vasquez MD [address] [place] [address], [phone] , [facility] 2 15:42:49 Hypereme sis gravidar 43886758 Completed 10/11/2021 resolvin g, zofran 2-3x daily Camilla Marie MD [address] [place] [address], [phone] , [facility] 2 13:09:17 Rubella non-immu ne 394711472 Completed MMR postpart um Jackeline Vasquez MD [address] [place] [address], [phone] , [facility] 2 15:42:49 Normal pregnanc y in primigra megan 21578830177 4103 Completed O+/RI gtt 108 Jackeline Vasquez MD [address] [facility], [place], [address] , [facility] [employer] [facility] 2 15:42:49 Sampling of vagina for Papanico laou smear Active 2020 Encounte r for gynecolo gical examinat ion (general ) (routine ) without abnormal findings ; Progress : Stable Added By: Deanna Rodriguez Add to Current Problems : YES ProblemS tatus: Current Not Available [facility] 2 21:38:40 Pregnanc y, childbir th and puerperi um finding Active 2020 Encounte r for supervis ion of normal first pregnanc y, second trimeste r; Progress : Stable Added By: Deanna Rodriguez Add to Current Problems : YES ProblemS tatus: Current Not Available [facility] 2 21:38:40 Gestatio n period, 14 weeks 41232196 Active 2020 14 weeks gestatio n of pregnanc y; Progress : Stable Added By: Deanna Rodriguez Add to Current Problems : YES ProblemS tatus: Current Not Available [facility] 2 21:38:41 Surveill ance of vaginal hormone releasin g ring method of contrace ption Completed 201706/07/2021 Encounte r for surveill ance of vaginal ring hormonal contrace ptive device; Progress : Stable Added By: Deanna Rodriguez Add to Current Problems : NO ProblemS tatus: Resolve Follow-u p visit for other contrace ption method; Location : None Progress : Stable Added By: Kiersten Gan Add to Current Problems : YES ProblemS tatus: Resolve Not Available [facility] 2 21:38:41 Mild hypereme sis gravidar um 57037911 Active 2020 Mild hypereme sis gravidar um; Progress : Stable Added By: Katina Hutchinson Add to Current Problems : YES ProblemS tatus: Current Not Available [facility] 2 21:38:41 Screenin g for malignan t neoplasm of cervix Active 2020 Encounte r for screenin g for malignan t neoplasm of cervix; Progress : Stable Added By: Deanna Rodriguez Add to Current Problems : YES ProblemS tatus: Current Not Available [facility] 2 21:38:42 Antenata l screenin g Active 2020 Encounte r for other specifie d antenata l screenin g; Progress : Stable Added By: Deanna Rodriguez Add to Current Problems : YES ProblemS tatus: Current Not Available [facility] 2 22:04:47 Problem Notes None recorded. Procedures Surgical History Date Name Laterality Status Provider Name and Address Organization Details Recorded Time Date of Last Pap Smear completed [facility] 10/03/2021 17:12:56 Imaging Results None recorded. Procedure Notes None recorded. Medical Equipment None Reported. Allergies No known drug allergies Medications Name Sig Start Date Stop Date Status Note LastModified by Organization Details LastModified Time venlafaxi ne ER 37.5 mg capsule,e xtended release 24 hr TAKE 1 CAPSULE BY MOUTH DAILY 09/02 completed Not Available Not Available Not Available sucralfat e 1 gram tablet 09/02 completed Not Available Not Available Not Available ondansetr on HCl 4 mg tablet 4 MG BY ORAL ROUTE EVERY 8 HOURS NEEDED 09/02 completed Not Available Not Available Not Available famotidin e 40 mg tablet 09/02 completed Not Available Not Available Not Available sertralin e 100 mg tablet TAKE 2 TABLETS BY MOUTH DAILY 09/02 completed Not Available Not Available Not Available ondansetr on 8 mg disintegr ating tablet DISSOLVE 1 TABLET ON THE TONGUE TWICE DAILY NEEDED 12/12 completed Not Available Not Available Not Available Zoloft 50 mg tablet Take 1 tablet every day by oral route at bedtime. 2021 active Not Available Not Available Not Avai lable promethaz ine 25 mg tablet TAKE 1 TABLET BY MOUTH EVERY 6 HOURS NEEDED 09/02 completed Not Available Not Available Not Available docusate sodium 100 mg capsule TAKE 1 CAPSULE BY MOUTH TWICE DAILY NEEDED FOR CONSTIPA TION 12/12 completed Not Available Not Available Not Available hydroxyzi ne HCl 25 mg tablet TAKE 1 TABLET BY MOUTH TWICE DAILY NEEDED 09/02 completed Not Available Not Available Not Available mirtazapi ne 15 mg tablet TAKE 1 TABLET BY MOUTH AT BEDTIME 09/02 completed Not Available Not Available Not Available methylpre dnisolone 4 mg tablets in a dose pack FOLLOW PACKAGE DIRECTIO NS 09/02 completed Not Available Not Available Not Available albuterol sulfate HFA 90 mcg/actua tion aerosol inhaler INHALE 2 INHALATI ONS BY MOUTH EVERY 4 TO 6 HOURS NEEDED 09/02 completed Not Available Not Available Not Available ondansetr on 4 mg disintegr ating tablet DISSOLVE 1 TABLET BY MOUTH EVERY 8 HOURS 12/12 completed Not Available Not Available Not Available metoclopr amide 10 mg tablet 09/02 completed Not Available Not Available Not Available nitrofura ntoin monohydra te/macroc rystals 100 mg capsule TAKE ONE CAPSULE BY MOUTH EVERY 12 HOURS FOR 7 DAYS 09/02 completed Not Available Not Available Not Available metoclopr amide HCl 12/12 completed metoclop ramide HCl RxNorm: 5367172 Refill Denied: No Refill DateOccu rred: 07/08/20 Edited by: ameya heller(Imelda Sloan ) on 07/08/20 21 Stopped by: ameya pina(Imelda Sloan ) on Not Available Not Available Not Available sucralfat e 12/12 completed sucralfa te RxNorm: 57224 Refill Denied: No Refill DateOccu rred: 07/08/20 Edited by: ameya heller(Imelda Sloan ) on 07/08/20 Stopped by: ameya pina(Imelda Sloan ) on Not Available Not Available Not Available promethaz ine 12/12 completed prometha zine RxNorm: 132307 Refill Denied: No Refill DateOccu rred: 07/08/20 Edited by: ameya heller(Imelda Sloan ) on 07/08/20 21 Stopped by: ameya heller(Imelda Sloan ) on Not Available Not Available Not Available NuvaRing Insert 1 vaginal ring in vagina for 21 days then remove the ring for 1 week. 11/20 completed NuvaRing 0.015mg/ 0.12mg Vaginal Ring RxNorm: 8767362 Allow Substitu tion: True Refill Denied: No Not Available Not Available Not Available aripipraz ole 2 mg tablet TAKE 1 TABLET BY MOUTH EVERY DAY AT BEDTIME 09/02 completed Not Available Not Available Not Available ProAir HFA 09/02 completed ProAir HFA RxNorm: 677301 Refill Denied: No Refill DateOccu rred: 06/10/20 Edited by: Bella Bill ) on 06/10/20 Stopped by: Bella Bill ) on Not Available Not Available Not Available 28 mg iron-800 mcg tablet TAKE 1 TABLET BY MOUTH EVERY DAY 07/21 completed Not Available Not Available Not Available EluRyng 0.12 mg-0.015 mg/24 hr vaginal ring INSERT 1 RING VAGINALL Y FOR 3 WEEKS THEN REMOVE FOR 1 WEEK 07/21 completed Not Available Not Available Not Available Vitals Date Recorded Body height Body mass index (BMI) Body weight Body temperature Systolic blood pressure Diastolic blood pressure Provider Name and Address Organization Details Last Updated DateTime 2 165.1 cm 25 kg/m2 91869.2 77424 g 98.2 [degF] 116 mm[Hg] 68 mm[Hg] Ramonita [place] [employer] [facility] 2 10:40:05 Date Recorded Body height Body mass index (BMI) Body weight Body temperature Systolic blood pressure Diastolic blood pressure Provider Name and Address Organization Details Last Updated DateTime 2 165.1 cm 25.4 kg/m2 13946.1 93456 g 97.7 [degF] 118 mm[Hg] 72 mm[Hg] Elsa Steve [employer] [facility] 2 12:44:53 Date Recorded Body height Body temperature Body mass index (BMI) Body weight Systolic blood pressure Diastolic blood pressure Provider Name and Address Organization Details Last Updated DateTime 2 165.1 cm 98 [degF] 22.8 kg/m2 14256.4 40861 g 126 mm[Hg] 74 mm[Hg] Ramonita Cuelloer [employer] [facility] 2 11:23:33 Date Recorded Body height Body mass index (BMI) Body weight Body temperature Systolic blood pressure Diastolic blood pressure Provider Name and Address Organization Details Last Updated DateTime 2 165.1 cm 24.5 kg/m2 26986.5 2 g 97.5 [degF] 122 mm[Hg] 72 mm[Hg] Ramonita Arceolister [employer] [facility] 2 16:20:26 Date Recorded Body height Body mass index (BMI) Body weight Systolic blood pressure Diastolic blood pressure Provider Name and Address Organization Details Last Updated DateTime 07/21/2022 165.1 cm 21.7 kg/m2 81644.16 g 118 mm[Hg] 70 mm[Hg] Katina Hutchinson [employer] [facility] 2 10:17:51 Social History Question Answer Notes LastModified by [employer] Details LastModified Time Tobacco Smoking Status Never Smoker Katina Hutchinson yesica, [employer] [facility] 07/21/2022 10:19:20 What Type Of Diet Are You Following? REGULAR [email or web address] Information not available 07/21/2022 What Is Your Relationship Status? Single Information not available 10/03/2021 Are You Sexually Active? Yes Information not available 10/03/2021 Sex: Unknown Functional Status Question Answer Note LastModified by [email or web address] Details LastModified Time Do you use any illicit or recreational drugs? No [email or web address] Information not available 07/21/2022 Do you or have you ever used any other forms of tobacco or nicotine? No [email or web address] Information not available 07/21/2022 What is your level of alcohol consumption? None [email or web address] Information not available 07/21/2022 Mental Status None recorded. Family History Relationship Description Onset Age of this Age Resolved Age Notes LastModified by Organization Details LastModified Time Father No current problems or disability [email or web address] Not available 02/2022 17:13:39 Mother No current problems or disability [email or web address] Not available 02/2022 17:13:39 Medical History Condition Response Depression Y Asthma Y Gynecological History Statement/Question Response Flow Moderate Date of LMP 07/07/2022 Frequency of Cycle (Q days) 28 Date of Last Pap Smear 07/08/2021 Duration of Flow (days) 4 Current Control Method None Age at Menarche 12 Obstetrics History GPAL:G 1 P 0 1 0 1 Type Value Premature 1 Living 1 Total 1 Past Encounters Encounter ID Performer Location Encounter Start Date Encounter Closed Date Diagnosis/Indication Diagnosis SNOMED-CT Code Diagnosis ICD10 Code Diagnosis Note [id number] [facility] [address] [facility] [place] [address] 09/02/2021 10:09:16 09/02/2021 10:52:32 Hyperemesis gravidarum 46602025 O21.0 Weaned down to zofran only. Mild nausea 2-3 times a day. Feeling much better [id number] [facility] [address] [facility] [place] [address] 10/04/2021 10:26:38 10/04/2021 20:04:52 Normal in primigravida 7481373685 34571 Z34.02 Gestation period, 23 weeks 69890244 Z3A.23 Pt was not scheduled for anatomy scan - PA sent today [id number] Camilla Marie MD [facility] [address] [place] [address] 10/11/2021 12:06:14 10/11/2021 13:17:24 screening for malformation 295851761 Z36.3 Routine an tenatal care 262783986 Z34.02 Gestation period, 24 weeks 819888304 Z3A.24 [id number] [facility] [address] [place] [address] 11/08/2021 10:00:59 11/14/2021 13:50:08 screening for malformation 074013929 Z36.3 [id number] [facility] [address] [facility] [place] [address] 11/22/2021 11:52:27 11/25/2021 15:13:41 [id number] [facility] [address] [facility] [place] [address] 12/12/2021 11:02:54 12/12/2021 12:49:30 state 81645388 Z39.2 Maternal p ostpartum depression screening 1212396112 43598 Z13.32 Chaim is doing well so far . EPDS = 8 today. Planning Nuva Ring for control, used in past and was happy with it, plan Rx at 6 weeks pp. F/u in 4wks for 6wk pp visit. [id number] RAJIV FRITZ CLEMENT CNM [facility] h [address] [place] [address] 01/07/2022 16:03:43 01/14/2022 11:58:41 state 57089660 Z39.2 COUNSELING was provided today regarding the following topics:- healthy eating habits. -- education given on weight management .- regular exercise - may resume pre-pregna ncy frequency and intensity as tolerated- Sexual activity - may resume intercours e & use backup contracept ion as needed.- Dietary supplement s: continue vitamins- Kiln Stacker screening: maintain recommende d screening guidelines including PAP screeninga s indicated- Depression - She denies any feelings of depression , frequent crying or feelings of harming self or others.- EPDS is 5.- Educated on the warning signs of depression and when to seek medicalatt ention.- SAFE SLEEPING INSTRUCTIO NS- avoid belly sleep, co-sleepin g,- maintain cool environmen t,- no blankets or other objects in crib that could present hazard to .- Resume normal activity as tolerated- May return to work w/o restrictio n when specified maternity leave is completed. - FOLLOW-UP: Schedule a follow-up appointmen t as needed Contracept ion care management 208614390 Z30.9 - Discussed options including OCPs, NuvaRing, patch, Nexplanon, hormonal and copper IUDs - Discussed risks, efficacy, noncontrac eptive benefits, and side effects of each option, including risk of VTE with hormonal contracept ion and uterine perforatio n, expulsion, infection with IUD. - Handouts given - Prefers nuvaring-A CHES reviewed and when to seek emergency care-no contraindi cations to use IDed-begin >6 week PP and once bleeding stops. [id number] RAJIV TOLBERTKellen CLEMENT CNM [facility] [address] [place] [address] 07/21/2022 10:13:24 07/21/2022 11:01:36 depression 32302680 F53.0 F41.9 Patient presents for evaluation of depression . Based on history and exam, I do not think the patient poses an immediate risk for self-harm or harm to the child, and recommend following up with [facility] for PPD evaluation . Patient declines at present but would like to start Zoloft. Plan 8 weeks of Zoloft and then RTC for eval of effectiven ess. Already sees counselor. If [facility] report to ED and risks/bene fits of SSRI reviewed. Discussed any new orders and instructio ns with patient. Health Concerns Section Related Observation LastModified by Organization Detai ls LastModified Time None Recorded Concern Status LastModified by Organization Details LastModified Time None Recorded Advance Directives Directive None Recorded Payers Insurance Date Sequence Insurance Name Policy Number Policy Santillan Covered Member ID Santillan Member ID Guarantor Name 01/07/2022 2 [employer] [facility] [place] [facility] ON OR AFTER 08/28/2020 (MEDICAID REPLACEMENT - HMO) Chaim Vazquez [id number] Chaim Vazquez 07/24/2022 1 [employer] [id number] Chaim Vazquez [id number] Chaim Vazquez 07/18/2022 2 [place] [facility] Chaim Vazquez [id number] Chaim Vazquez Notes Date Note Type Note Provider Name and Address Organization Details Recorded Time 11/08/2021 text/html OB ProblemReport ed bypatient.Associated Symptoms:no abdominal pain; no cramping; no contractions; normal movement; no bleeding; no ROM; no vaginal discharge; no vaginal/vulvar itching or irritation; no edema; no visual changes; no headache; no dizziness; no breathlessness [employer] CNM [address] [place], [address], [facility] Simmery 11/08/2021 17:00:00 11/22/2021 text/html OB ProblemReport ed bypatient.Associated Symptoms:no abdominal pain; no cramping; no contractions; normal movement; no bleeding; no ROM; no vaginal discharge; no vaginal/vulvar itching or irritation; no edema; no visual changes; no headache; no dizziness; no breathlessness [facility] [place], [address], [facility] Rigel IV 11/22/2021 13:10:40 12/12/2021 text/html VisitReported bypatient.Onset/Timin g:date of delivery: (11/25/2021) Quality: Context:feeding choice: breast (pumping) Associated Symptoms:no abnormal bleeding; no vaginal discharge; no pelvic pain; laceration well healed; no constipation; no fecal incontinence; no dysuria; no urinary incontinence; no fever; no problems; no mastitis; normal mood Chaim is here for visit. She presented to [facility] at 28 weeks' gestation where she was diagnosed with PPROM and subsequently transferred to [facility] for observation. She went into labor shortly after admission and had an otherwise uncomplicated on 11/25/21 per patient. Baby girl Kelly, in NICU but doing well per patient. Chaim reports she was diagnosed with gestational hypertension intrapartum but she denies ever requiring IV magnesium (other than antepartum magnesium for neuroprotection) or being started on any PO antihypertensives. She reports she has been checking BPs intermittently at home as instructed by her doctors at [facility], reports they have been within normal limits. Chaim reports she is doing well overall, no complaints. She is ambulating without difficulty, tolerating a regular diet, voiding normally, and having regular bowel movements. Lochia is decreasing and within normal limits. She reports good mood, denies significant sadness/anxiety. Jackeline Vasquez MD [facility] [place], [address], [facility] Rigel IV 12/15/2021 15:44:11 01/07/2022 text/html VisitReported bypatient.Onset/Timin g:date of delivery: (11/25/2021) Quality: Context:feeding choice: bottle (pumping) Associated Symptoms:no abnormal bleeding; no vaginal discharge; no pelvic pain; laceration well healed; no constipation; no fecal incontinence; no dysuria; no urinary incontinence; no fever; no problems; no mastitis; normal mood RAJIV CLEMENT, CARLOSM [address] [facility], [place], [address], [facility] Simmery IV 01/12/2022 20:48:55 07/21/2022 text/html Chaim here due to post issues, c/o weight loss, no appetite, mood swings, anxiety x 2-3 months, Delivered on 11/25/2021. her baby was in the NICU for >1 month r/t prematurity. RAJIV CLEMENT, JAIMIE [address] [facility], [place], [address], [facility] Simmery IV 07/21/2022 10:57:09 OBGyn Episode Ob Episode Information Episode Created Date Number of Fetuses Patient Bloodtype Patient rh Status Prepregnancy Weight lbs Domestic Partner Domestic Partner Phone Father Name Air Reduction Equipment Operator Status 09/02/20 21 1 O Positive 149 CLOSED Fetus Data First Name Last Name Admitted to NICU Weight (g) Sex Living Outcome Pediatric Complications Fetus ID Race Codes Race Delivery Type King Bhat true 1584.75 [id number] F true Prematur e [id number] [id number] White Problems Problem Notes CF negative Problem Name Start Date End Date Resolution Snomed Code Not e History of depression 150574691 mood stable Asthma 422329545 no meds Hyperemesis gravidarum 00698990 resolving, zofr an 2-3x daily Rubella non-immune 297671202 M MR Normal in primigravida [id number] O+/RI gtt 10 8 Luis Fernando Calculation Initial Luis Fernando Date Initial Exam Date Initial Exam Provider Initial Ultrasound Date Last Menstrual Period Date Ultra Sound Weeks Gestation 01/28/2022 09/02/2021 06/10/2021 6 Eighteen To Twenty Week Luis Fernando Update Ultra Sound Date Fundal Height At Umbil Quickening Date Ultra Sound Latest Weeks Gestation Final Luis Fernando Confirmed By Final Luis Fernando Confirmed Date Final Luis Fernando Date Ultra Sound Latest Days Gestation 0 [email or web address] 12/12/2021 01/29/20 22 0 Pre-sherrie Flowsheet Flowsheet Date 09/02/2021 Vega Score Blood Edema Fundus Height Fundus Units Glucose Ketones Leukocytes Nitrite Labor Signs Protein Cervic Dilation Cervic Effacement Cervic Station none 18 wks none Cramping neg Type Weight in lbs Pre/Post Dialysis Refused Weight 143.516923109031 BP Diastolic BP Location Tested BP Systolic BP Type 74 120 Fetus Heart Rate Present A 158 Present Fetus Movement A Yes Comments s/p er visit for vaginal ble eding with mild cramping, ruled out for PTL. Denies s/s today, precautions given. Reports mild nausea, using only zofran 2-3x per day. FWB reassuring today. Denies any LOF, VB, Cramping. Flowsheet Date 10/04/2021 Vega Score Blood Edema Fundus Height Fundus Units Glucose Ketones Leukocytes Nitrite Labor Signs Protein Cervic Dilation Cervic Effacement Cervic Station none 21 none none neg Type Weight in lbs Pre/Post Dialysis Refused With clothes 149.222731677571 BP Diastolic BP Location Tested BP Systolic BP Type 62 L arm 110 sitting Fetus Heart Rate Present A 164 Fetus Movement A Yes Comments anatomy next week. PA sent Flowsheet Date 10/11/2021 Vega Score Blood Edema Fundus Height Fundus Units Glucose Ketones Leukocytes Nitrite Labor Signs Protein Cervic Dilation Cervic Effacement Cervic Station none none none neg Type Weight in lbs Pre/Post Dialysis Refused With clothes 146.286413004767 BP Diastolic BP Location Tested BP Systolic BP Type 68 R arm 116 sitting Fetus Heart Rate Present A 144 Fetus Movement A Yes Comments Anatomy incomplete. Need to complete next visit. 28 week labs next visit. Flowsheet Date 11/08/2021 Vega Score Blood Edema Fundus Height Fundus Units Glucose Ketones Leukocytes Nitrite Labor Signs Protein Cervic Dilation Cervic Effacement Cervic Station none 28 cm none trace Type Weight in lbs Pre/Post Dialysis Refused Weight 150.40303511788 BP Diastolic BP Location Tested BP Systolic BP Type 68 116 Fetus Heart Rate Present A 141 Fetus Movement A Yes Comments Anatomy complete. Returning this week for GTT due to time constraints today. Flowsheet Date 11/22/2021 Vega Score Blood Edema Fundus Height Fundus Units Glucose Ketones Leukocytes Nitrite Labor Signs Protein Cervic Dilation Cervic Effacement Cervic Station none 29 cm Type Weight in lbs Pre/Post Dialysis Refused Weight 152.135028694006 BP Diastolic BP Location Tested BP Systolic BP Type 72 118 Fetus Heart Rate Present A 128 Fetus Movement A Yes Comments Tdap and Flu orders given to day Flowsheet Date 12/12/2021 Vega Score Blood Edema Fundus Height Fundus Units Glucose Ketones Leukocytes Nitrite Labor Signs Protein Cervic Dilation Cervic Effacement Cervic Station Type Weight in lbs Pre/Post Dialysis Refused Weight 136.82247248690 BP Diastolic BP Location Tested BP Systolic BP Type 74 126 Fetus Heart Rate Present Fetus Movement Comments Menstrual History Last Menstrual Date Menses Monthly On Bcp Conception Prior Menses Frequency Hcg Plus Date Menarche Onset Age Genetic Screening And Infection History Question Response Note Recent Travel History Outside of Country false Cystic Fibrosis false Any Other Genetic History false Benjamin Disease false Other Infection History false Thalassemia (Uzbek, Greenlandic, Mediterranean, Or Background): MCV < 80 false Patient Or Baby's Father Had A Child With Defects Not Listed Above false Live With Someone With TB Or Exposed To TB false Patient's Age Will Be 35 Years Or Older At Estim ated Date of Delivery false Recurrent Loss, Or A Stillbirth false Hemoglobinopathy Or Carrier false Patient Or Partner Has History Of Genital Herpes false Intellectual Disability/Autism false Maternal Metabolic Disorder (eg, Type 1 Diabetes , PKU) false History of Hepatitis false Ryland-Sachs (eg, Anglican, Cajun, Georgian-Georgian) f alse History Of STD, Gonorrhea, Chlamydia, HPV, Syphi lis false Prior GBS-infected child false History of HIV false Personal or Family History o f Neural Tube Defect (Meningomyelocele, Spina Bifida, Or Anencephaly) false Hemophilia Or Other Blood Disorders false Mental Retardation/Autism false [place] false If Yes, Was Person Tested For Fragile X? false Other Inherited Genetic Or Chromosomal Disorder false If Yes, Agent(s) And Strength/Dosage false Sickle Cell Disease Or Trait () false Personal or Family History of Congenital Heart D efect false Rash Or Viral Illness Since Last Menstrual Perio d false Muscular Dystrophy false Medications (including Suppl ements, Vitamins, Herbs, OTC Drugs), Illicit/Recreational Drugs, Alcohol false Other Structural Defect false Down Syndrome false Delivery Information Delivery Date Delivery Type Labor Anesthesia Weeks Gestation Incision Type Labor Labor Length Hrs Delivered By Post Complications Tubal Sterilization Discharge Date Comments Sponta neous Regional-Ep idural 30.6 true None false 11/28/2021 PPROM /PTL at 30wks. Gestation al HTN. Discharge Information Feeding Method Contraceptive Method Maternal HG B and HCT Levels Combination Nuva Ring 11.4
--- OUTSIDE RECORDS SUMMARY | 2025-03-03 08:19 | XMS_ITS | Patient Health Record ---
Author Organization [facility] Address [address] [place] [address] Care Team Providers Care Poultry Field Service Technician Name Role Phone Nemo Omalley Primary Care [...] Problem Status W/U Status Risk Notes Problem 312831256 Major depressive disorder, recurrent, moderate (F33.1) Active confirmed Problem 78107078 Generalized anxiety disorder (F41.1) Active confirmed Plan Of Treatment No Information Insurance Providers Payer Name Payer Address Payer Phone Subscriber Number Group Number Insured Name Patient Relationship to Insured Coverage Start Date Coverage End Date [facility] [address] [address] [place] [phone] [id number] HusseinChaim pollack Self - patient is the insured 1 Medical (General) History Surgical History Surgery Date(Month/Year)
--- OUTSIDE RECORDS SUMMARY | 2025-03-03 08:19 | XMS_ITS | Clinical Summary ---
Author Organization [facility] Address [address] [facility] [place] [address] Care Team Providers Care Manufacturing Scheduler Name Role Phone Unavailable Primary Care Provider Unavailabl e Source Comments [facility],non-owned Affiliates and Associated Physician Practices is amultiple site organization consisting of ambulatory clinics and hospital sitesin [place], [place], [place]. This disclosure is being madepursuant to the Care Everywhere program and may not contain all information available regarding this patient. 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 Gender Identity Not on file Sexual Orientation Not on file Last Filed Vital Signs Vital Sign Reading Time Taken Comments Blood Pressure 129/94 11/27/2021 8:05 AM AIRPLANE PILOT CROP DUSTING Pulse 53 11/27/2021 8:05 AM AIRPLANE PILOT CROP DUSTING Temperature 36.9 C (98.5 F) 11/27/2021 8:05 AM AIRPLANE PILOT CROP DUSTING Respiratory Rate 18 11/27/2021 8:05 AM AIRPLANE PILOT CROP DUSTING Oxygen Saturation 100% 11/27/2021 8:05 AM AIRPLANE PILOT CROP DUSTING Inhaled Oxygen Concentration - - Weight 68.9 kg (152 lb) 11/24/2021 11:31 AM AIRPLANE PILOT CROP DUSTING Height 157.5 cm (5' 2) 11/24/2021 11:31 AM AIRPLANE PILOT CROP DUSTING Body Mass Index 27.8 11/24/2021 11:31 AM AIRPLANE PILOT CROP DUSTING Plan of Treatment Health Maintenance Due Date [...] GC AMPLIFIED PROBE Routine 11/24/2021 1:45 PM AIRPLANE PILOT CROP DUSTING from Last 3 Months or Most Recently Relevant to Health Maintenance Results * CHLAMYDIA + GC AMPLIFIED PROBE (STL) (11/24/2021 1:45 PM AIRPLANE PILOT CROP DUSTING) Chlamydia Amplified Probe Negative Negative 11/25/2021 11:02 AM AIRPLANE PILOT CROP DUSTING [facility] MICROBIOLOGY GC Amplified Probe Negative Negative 11/25/2021 11:02 AM AIRPLANE PILOT CROP DUSTING [facility] MICROBIOLOGY Microbiology ENTIRE ENDOCERVIX / Unknown Collection / Unknown 11/24/2021 1:45 PM AIRPLANE PILOT CROP DUSTING 11/24/2021 1:56 PM AIRPLANE PILOT CROP DUSTING Narrative [facility] MICROBIOLOGY - 11/25/2021 11:02 AM AIRPLANE PILOT CROP DUSTING Results based on detection/no detection of ribosomal RNA by amplified method. Elma Gatica MD LAB - MICROBIOLOGY ORD ERABLES Final Result [facility] MICROBIOLOGY [address] [place] [address], [facility] [place] [phone] from Last 3 Months or Most Recently Relevant to Health Maintenance Insurance [employer] MEDICAID - [place] [facility] Advance Directives * Full Code (Latest Code Status on File) Date Activated Date Inactivated Comments 11/24/2021 11:02 PM 11/27/2021 1:09 PM * Full Code Date Activated Date Inactivated Comments 11/24/2021 12:16 PM 11/24/2021 11:02 PM
--- OUTSIDE RECORDS SUMMARY | 2025-03-03 08:19 | XMS_ITS | Referral Summary ---
Author Organization [facility] ([place], [place]) Address [address] [place] [address] Care Team Providers Care Aluminum Siding Installer Name Role Phone Minh Lam DO Primary Care Provider [phone] Encounters Date Type Department Care Team Description 02/13/2025 5:16 AM CDT - 02/13/2025 9:12 AM CDT Emergency [facility] Emergency Department [address] [place] [address] Awilda Prieto MD Nausea and vomiting, unspecified [...] on file Legal Sex Female 12:07 AM COMMUNITY REINVESTMENT ACT OFFICER Gender Identity Not on file Sexual Orientation [...] 4:48 AM CDT Height 167.6 cm (5' 6) 02/13/2025 4:48 AM CDT Body Mass Index [...] tendency for uric acid stone formation. Source: [facility]BR-SYNARC Current Interpretive Data was last revised on 2017 Protein, ur ql Negative Negative [facility] ([place]) Glucose, ur ql Negative Negative [facility] ([place]) Ketones, ur 1+(A) Negative [facility] ([place]) Bilirubin, ur Negative Negative [facility] ([place]) Blood, ur 3+(A) Negative [facility] ([place]) Urobilinogen, ur <2.0 <2.0 mg/dL [facility] ([place]) Nitrite, ur Negative Negative [facility] ([place]) Leukocyte esterase, ur Negative Negative [facility] ([place]) UA reflex comment Reflex to microscopic UA will be performed. [facility] ([place]) Urine 02/13/2025 7:47 AM CDT 02/13/2025 8:03 AM CDT Awilda Prieto MD LAB MICROBIOLOGY - GENERA L ORDERABLES Final Result [facility] ([place]) [address] [facility] [place] [address] * hCG, urine, qualitative (02/13/2025 7:47 AM CDT) HCG, ur Negative Negative Urine 02/13/2025 7:47 AM CDT 02/13/2025 8:18 AM CDT Awilda Prieto MD LAB URINE ORDERABLES Rocio l Result Performing Organization Address City/[facility] Co de Phone Number [facility] ([place] [address] [facility] [place] [address] * (ABNORMAL) Urinalysis, microscopic only (02/13/2025 7:47 AM CDT) WBC, ur 0-5 0 - 5 /HPF RBC, ur 11-20(A) 0 - 2 /HPF [facility] ([place]) Epithelial cells, squamous, ur 1-5 0 - 5 /HPF [facility] ([place]) Mucous, ur Present(A) [facility] ([place]) Culture Reflex Comment Reflex conditions for urine culture (WBC >10) not met. [facility] ([place]) Urine 02/13/2025 7:47 AM CDT 02/13/2025 8:03 AM CDT Rebekah Whaley MD LAB URINE ORDERABLES Final Resul t Performing Organization Address City/[facility]/ZIP Co de Phone Number [facility] ([place] [address] [facility] [place] [address] * eGFR (02/13/2025 4:54 AM CDT) eGFR [...] BLOOD ORDERABLES Rocio l Result [facility] ([place] [address] [facility] [place] [address] * (ABNORMAL) Differential, auto (02/13/2025 4:54 AM [...] Lymphocyte pct 15.2 % [facility] ([place]) Comment: Interpretive Data Percent cell count reference [...] 2018. Basophil pct 0.7 % [facility] ([place]) Comment: Interpretive Data Percent cell count reference ranges are not reported, since discordance with absolute values may lead to misinterpretation of CBC data. Current Interpretive Data was last revised on 2018. Blood 02/13/2025 4:54 AM CDT 02/13/2025 5:04 AM CDT us Awilda Prieto MD LAB BLOOD ORDERABLES Rocio valarie Result [facility] ([place]) [address] [facility] [place] [address] * (ABNORMAL) CBC with auto differential (02/13/2025 [...] MD LAB BLOOD ORDERABLES Rocio l Result [facility] ([place]) [address] [facility] [place] [address] * Lipase (02/13/2025 4:54 AM CDT) Lipase 27 10 - 99 Units/L Blood Venous blood specimen / Unknown 02/13/2025 4:54 AM CDT 02/13/2025 5:05 AM CDT Awilda Prieto MD LAB BLOOD ORDERABLES Rocio l Result [facility] ([place]) [address] [facility] [place] [address] * (ABNORMAL) Comprehensive metabolic panel (02/13/2025 4:54 [...] Rocio sheppard Result [facility] [place] [address] [facility] [place] [address] from Last 3 Months Insurance [facility] H[facility]/PPO Address: [facility] [address] [place] [address] [facility] IDPA CIG IDPA Advance Directives For more information, please contact: [phone] * Full Code (Latest Code Status on File) Date Activated Date Inactivated Comments 06/28/2021 3:30 PM 06/29/2021 9:30 PM Care Teams Aluminum Siding Installer Relationship Specialty Start Date End Date Minh Lam DO [address] [address] PCP - General Internal Medicine 02/13/25
--- OUTSIDE RECORDS SUMMARY | 2025-03-03 08:19 | XMS_ITS | Clinical Summary ---
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 Source: [facility] Current Interpretive Data was last [...] Final Result Performing Organization Address [facility] Co de Phone Number [facility] ([place]) 1 [facility] [place] [address] * hCG, urine, qualitative (02/13/2025 7:47 AM CDT) HCG, ur Negative Negative Urine 02/13/2025 7:47 AM CDT 02/13/2025 8:18 AM CDT Awilda Prieto MD LAB URINE ORDERABLES Rocio l Result Performing Organization Address City/[facility]/ZIP Co de Phone Number [facility] ([place] 1 [facility] [place] [address] * (ABNORMAL) Urinalysis, microscopic only (02/13/2025 7:47 AM CDT) WBC, ur 0-5 0 - 5 /HPF RBC, ur 11-20(A) 0 - 2 /HPF [facility] ([place]) Epithelial cells, squamous, ur 1-5 0 - 5 /HPF [facility] ([place]) Mucous, ur Present(A) [facility] ([place]) Culture Reflex Comment Reflex conditions for urine culture (WBC >10) not met. [facility] ([place]) Urine 02/13/2025 7:47 AM CDT 02/13/2025 8:03 AM CDT us Rebekah Whaley MD LAB URINE ORDERABLES Final Resul t [facility] ([place]) 1 [facility] [place] [address] * eGFR (02/13/2025 4:54 AM CDT) eGFR [...] BLOOD ORDERABLES Rocio sheppard Result [facility] ([place]) 1 [facility] [place] [address] * (ABNORMAL) Differential, auto (02/13/2025 4:54 AM CDT) Neutrophil abs 7.70(H) 1.50 - 6.50 K/cumm Imm gran abs 0.04 0.00 - 0.10 K/cumm [facility] ([place]) Lymphocyte abs 1.57 0.80 - 3.30 K/cumm [facility] ([place]) Monocyte abs 0.73 0.20 - 0.80 K/cumm [facility] ([place]) Eosinophil abs 0.21 0.00 - 0.50 K/cumm [facility] ([place]) Basophil abs 0.07 0.00 - 0.10 K/cumm [facility] ([place]) Neutrophil pct 74.6 % [facility] ([place]) Comment: Interpretive Data Percent cell count reference ranges are not reported, since discordance with absolute values may lead to misinterpretation of CBC data. Current Interpretive Data was last revised on 2018. Imm gran pct 0.4 % [facility] ([place]) Comment: Interpretive Data Percent cell count reference ranges are not reported, since discordance with absolute values may lead to misinterpretation of CBC data. Current Interpretive Data was last revised on 2018. Lymphocyte pct 15.2 % [facility] ([place]) Comment: Interpretive Data Percent cell count reference ranges are not reported, since discordance with absolute values may lead to misinterpretation of CBC data. Current Interpretive Data was last revised on 2018. Monocyte pct 7.1 % [facility] ([place]) Comment: Interpretive Data Percent cell count reference [...] Rocio sheppard Result [facility] ([place]) 1 [facility] [place] [address] * (ABNORMAL) CBC with auto differential (02/13/2025 [...] Rocio l Result [facility] ([place]) 1 [facility] [place] [address] * Lipase (02/13/2025 4:54 AM CDT) Pathologist [facility] Lipase 27 10 - 99 Units/L Blood Venous blood specimen / Unknown 02/13/2025 4:54 AM CDT 02/13/2025 5:05 AM CDT Awilda Prieto MD LAB BLOOD ORDERABLES Rocio l Result Performing Organization Address City/[facility]/ZIP Co de Phone Number [facility] ([place]) 1 [facility] [place] [address] * (ABNORMAL) Comprehensive metabolic panel (02/13/2025 4:54 AM CDT) [facility] Sodium 140 135 - 145 mmol/L Potassium, pl 3.6 3.3 - 4.9 mmol/L [facility] ([place]) Chloride 103 97 - 110 mmol/L [facility] ([place]) CO2 21(L) 22 - 32 mmol/L [facility] ([place]) Anion gap 16(H) 2 - 15 mmol/L [facility] ([place]) BUN 8 6 - 25 mg/dL [facility] ([place]) Creatinine 0.71 0.60 - 1.10 mg/dL [facility] ([place]) Glucose 175 70 - 199 mg/dL [facility] ([place]) Comment: Interpretive Data Fasting glucose >/= [...] MD LAB BLOOD ORDERABLES Rocio sheppard Result [facility] ([place]) 1 [facility] [place] [address] from Last 3 Months Insurance [facility] CIGNA IDPA CIGNA IDPA Advance Directives For more information, please contact: [phone] * Full Code (Latest Code Status on File) Date Activated Date Inactivated Comments 06/28/2021 3:30 PM 06/29/2021 9:30 PM Care Teams Clasp Machine Operator Relationship Specialty Start Date End Date Minh Lam DO [address] [facility] [address] [place], [place] [id number] PCP - General Internal Medicine 02/13/25
== END 2025-03-03 08:14 | disposition home or self-care (01) ==
PROVIDERS: PCP Internal Medicine; Visit Provider Internal Medicine
DX: R10.11 Right upper quadrant pain (principal)
CPT/HCPCS: 78227; A9537; J2805

== ENCOUNTER 2025-03-16 08:49 | Outpatient (CLI) | payer OTHER, MEDICAID, SELFPAY ==
--- OUTSIDE RECORDS SUMMARY | 2025-03-16 09:00 | XMS_ITS | Clinical Summary ---
Author Organization [facility] Address [address] [facility] [place] [address] Care Team Providers Care Auto Damage Insurance Appraiser Name Role Phone Unavailable Primary Care Provider Unavailabl e Source Comments [facility],non-owned Affiliates and Associated Physician Practices is amultiple site organization consisting of ambulatory clinics and hospital sitesin [place], [place], [place] and [place]. This disclosure is being madepursuant to the Care Everywhere program and may not contain all information available regarding this patient. Last updated 18.[facility] [employer] Allergies No known active allergies Medications * [...] drink = 0.6 oz pur e alcohol) Clayton Depression Scale Answer Date Recorded RETIRED: Total Score 5 11/25/2021 Last EPDS Self Harm Result Not on file 11/25 Comments No Sex and Gender Information Value Date Recorded Sex Assigned at Not on file Legal Sex Female 11:09 AM SETTER OUT Gender Identity Not on file Sexual Orientation Not on file Last Filed Vital Signs Vital Sign Reading Time Taken Comments Blood Pressure 129/94 11/27/2021 8:05 AM SETTER OUT Pulse 53 11/27/2021 8:05 AM SETTER OUT Temperature 36.9 C (98.5 F) 11/27/2021 8:05 AM SETTER OUT Respiratory Rate 18 11/27/2021 8:05 AM SETTER OUT Oxygen Saturation 100% 11/27/2021 8:05 AM SETTER OUT Inhaled Oxygen Concentration - - Weight 68.9 kg (152 lb) 11/24/2021 11:31 AM SETTER OUT Height 157.5 cm (5' 2) 11/24/2021 11:31 AM SETTER OUT Body Mass Index 27.8 11/24/2021 11:31 AM SETTER OUT Plan of Treatment Health Maintenance Due Date [...] GC AMPLIFIED PROBE Routine 11/24/2021 1:45 PM SETTER OUT from Last 3 Months or Most Recently Relevant to Health Maintenance Results * CHLAMYDIA + GC AMPLIFIED PROBE (STL) (11/24/2021 1:45 PM SETTER OUT) Chlamydia Amplified Probe Negative Negative 11/25/2021 11:02 AM SETTER OUT [facility]CRO[facility] GC Amplified Probe Negative Negative 11/25/2021 11:02 AM SETTER OUT [facility] Microbiology ENTIRE ENDOCERVIX / Unknown Collection / Unknown 11/24/2021 1:45 PM SETTER OUT 11/24/2021 1:56 PM SETTER OUT Narrative [facility] - 11/25/2021 11:02 AM SETTER OUT Results based on detection/no detection of ribosomal RNA by amplified method. Elma Gatica MD LAB - MICROBIOLOGY ORD ERABLES Final Result [facility] [address] [place] [address], [facility] [phone] from Last 3 Months or Most Recently Relevant to Health Maintenance Insurance CIGNA [facility] Address: [address] [place] [address] MEDICAID - [place] [facility] Address: [facility] [id number] [place] [address] Advance Directives * Full Code (Latest Code Status on File) Date Activated Date Inactivated Comments 11/24/2021 11:02 PM 11/27/2021 1:09 PM * Full Code Date Activated Date Inactivated Comments 11/24/2021 12:16 PM 11/24/2021 11:02 PM
--- OUTSIDE RECORDS SUMMARY | 2025-03-16 09:00 | XMS_ITS | Referral Summary ---
Author Organization [facility] Address [address] [place] [address] Care Team Providers Care Electric Motor Tester Assembler Name Role Phone Minh Lam DO Primary Care Provider [phone] Encounters Date Type Department Care Team Description 02/13/2025 5:16 AM CDT - 02/13/2025 9:12 AM CDT Emergency [facility] Emergency Department [address] [place] [address] Awilda Prieto MD Nausea and vomiting, unspecified vomiting type (Primary Dx) Discharge Disposition: Discharge to home or self care from Last 3 Months Allergies No known active allergies Medications famotidine (PEPCID) 40 mg tablet Take 1 tablet (40 mg total) by mouth daily 30 tablet 11 06/29/20 21 Active sucralfate (CARAFATE) 1 gram tablet Take 1 tablet (1 g total) by mouth 4 (four) times a day as needed (severity of heartburn) You may decrease to twice per day preferably before supper and bedtime 120 tablet 1 06/29/20 21 Active methylPREDNISolone (MEDROL DOSEPACK) 4 mg Dosepack Take as directed on package 1 packet 06/29/20 21 Active ondansetron (ZOFRAN) 8 mg tablet Take 1 tablet (8 mg total) by mouth every 8 (eight) hours as needed for nausea or vomiting Disintegrating tablet fine to give 60 tablet 1 06/29/20 21 Active metoclopramide (REGLAN) 10 mg tablet Take 1 tablet (10 mg total) by mouth 4 (four) times a day as needed (nausea) 60 tablet 1 06/29/20 21 Active guaiFENesin ER (MUCINEX) 600 mg 12 hr tablet Take 1 tablet (600 mg total) by mouth 2 (two) times a day 60 tablet 1 10/16/19 22 Active ondansetron ODT (ZOFRAN-ODT) 4 mg disintegrating tabletIndications: Excessive Vomiting in Take 1 tablet (4 mg total) by mouth every 8 (eight) hours as needed for nausea or vomiting 30 tablet 3 10/15/19 22 Active metoclopramide (REGLAN) 10 mg tablet Take 1 tablet (10 mg total) by mouth every 6 (six) hours 120 tablet 02/14/20 25 Active Active Problems Problem Noted Date Diagnosed Date [...] on file 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 pH may affect urinary stone formation. For example, urine pH below 6.0 may help reduce the tendency for calcium phosphate stones and pH greater than 6.0 may reduce the tendency for uric acid stone formation. Source: [facility] Holographic Projection for Architecture Current Interpretive Data was last revised on 2017 Protein, ur ql Negative Negative [facility] ([place]) Glucose, ur ql Negative Negative [facility] ([place]) Ketones, ur 1+(A) Negative [facility] ([place]) Bilirubin, ur Negative Negative [facility] ([place]) Blood, ur 3+(A) Negative [facility] ([place]) Urobilinogen, ur <2.0 <2.0 mg/dL [facility] ([place]) Nitrite, ur Negative Negative [facility] ([place]) Leukocyte esterase, ur Negative Negative [facility] ([place]) UA reflex comment Reflex to microscopic UA will be performed. [facility] ([place]) Urine 02/13/2025 7:47 AM CDT 02/13/2025 8:03 AM CDT Awilda Prieto MD LAB MICROBIOLOGY - GENERA L ORDERABLES Final Result Performing Organization Address [facility]/ZIP Co de Phone Number [facility] ([place]) 1 [facility] [place] [address] * hCG, urine, qualitative (02/13/2025 7:47 AM CDT) HCG, ur Negative Negative Urine 02/13/2025 7:47 AM CDT 02/13/2025 8:18 AM CDT Awilda Prieto MD LAB URINE ORDERABLES Rocio l Result Performing Organization Address [facility] Co de Phone Number [facility] ([place]) 1 [facility] [place] [address] * (ABNORMAL) Urinalysis, microscopic only (02/13/2025 7:47 AM CDT) WBC, ur 0-5 0 - 5 /HPF RBC, ur 11-20(A) 0 - 2 /HPF [facility] ([place]) Epithelial cells, squamous, ur 1-5 0 - 5 /HPF [facility] ([place]) Mucous, ur Present(A) [facility] ([place]) Culture Reflex Comment Reflex conditions for urine culture (WBC >10) not met. [facility] ([place]) Urine 02/13/2025 7:47 AM CDT 02/13/2025 8:03 AM CDT Rebekah Whaley MD LAB URINE ORDERABLES Final Resul t Performing Organization Address [facility]/ZIP Co de Phone Number [facility] ([place]) 1 [facility] [employer] [place] [address] * eGFR (02/13/2025 4:54 AM CDT) Pathologist [facility] eGFR >90 >=60 mL/min/1. 73 m2 Comment: [...] MD LAB BLOOD ORDERABLES Rocio sheppard Result [facility] ([place]) 1 [facility] [place] [address] * (ABNORMAL) Differential, auto (02/13/2025 4:54 AM CDT) Pathologist [facility] Neutrophil abs 7.70(H) 1.50 - 6.50 K/cumm Imm gran abs 0.04 0.00 - 0.10 K/cumm [facility] ([place]) Lymphocyte abs 1.57 0.80 - 3.30 K/cumm [facility] ([place]) Monocyte abs 0.73 0.20 - 0.80 K/cumm [facility] ([place]) Eosinophil abs 0.21 0.00 - 0.50 K/cumm [facility] ([place]) Basophil abs 0.07 0.00 - 0.10 K/cumm [facility] ([place]) Neutrophil pct 74.6 % [facility] ([place]) Comment: Interpretive Data Percent cell count reference ranges are not reported, since discordance with absolute values may lead to misinterpretation of CBC data. Current Interpretive Data was last revised on 2018. Imm gran pct 0.4 % [facility] ([place]) Comment: Interpretive Data Percent cell count reference ranges are not reported, since discordance with absolute values may lead to misinterpretation of CBC data. Current Interpretive Data was last revised on 2018. Lymphocyte pct 15.2 % [facility] ([place]) Comment: Interpretive Data Percent cell count reference ranges are not reported, since discordance with absolute values may lead to misinterpretation of CBC data. Current Interpretive Data was last revised on 2018. Monocyte pct 7.1 % [facility] ([place]) Comment: Interpretive Data Percent cell count reference ranges are not reported, since discordance with absolute values may lead to misinterpretation of CBC data. Current Interpretive Data was last revised on 2018. Eosinophil pct 2.0 % [facility] ([place]) Comment: Interpretive Data Percent cell count reference ranges are not reported, since discordance with absolute values may lead to misinterpretation of CBC data. Current Interpretive Data was last revised on 2018. Basophil pct 0.7 % [facility] ([place]) Comment: Interpretive Data Percent cell count reference ranges are not reported, since discordance with absolute values may lead to misinterpretation of CBC data. Current Interpretive Data was last revised on 2018. Blood 02/13/2025 4:54 AM CDT 02/13/2025 5:04 AM CDT us Awilda Prieto MD LAB BLOOD ORDERABLES Rocio l Result [facility] ([place]) 1 [facility] [place] [address] * (ABNORMAL) CBC with auto differential (02/13/2025 4:54 AM CDT) WBC 10.32(H) 3.80 - 9.90 K/cumm Hgb 13.9 11.9 - 15.5 g/dL [facility] ([place]) Hct 40.8 35.6 - 45.5 % [facility] ([place]) Plt 346 150 - 400 K/cumm [facility] ([place]) MPV 9.3 9.1 - 12.3 fL [facility] ([place]) RBC 4.63 3.90 - 5.20 M/cumm [facility] ([place]) MCV 88.1 81.3 - 96.4 fL [facility] ([place]) MCH 30.0 27.1 - 33.3 pg [facility] ([place]) MCHC 34.1 32.3 - 35.7 g/dL [facility] ([place]) RDW CV 13.0 11.1 - 14.9 % [facility] ([place]) RDW SD 41.7 35.7 - 48.1 fL [facility] ([place]) NRBC abs 0.00 0.00 - 0.01 K/cumm [facility] ([place]) Blood Venous blood specimen / Unknown 02/13/2025 4:54 AM CDT 02/13/2025 5:04 AM CDT Awilda Prieto MD LAB BLOOD ORDERABLES Rocio l Result [facility] ([place]) 1 [facility] [employer] [place] [address] * Lipase (02/13/2025 4:54 AM CDT) Lipase 27 10 - 99 Units/L Blood Venous blood specimen / Unknown 02/13/2025 4:54 AM CDT 02/13/2025 5:05 AM CDT Awilda Prieto MD LAB BLOOD ORDERABLES Rocio l Result [facility] ([place] 1 [facility] [place] [address] * (ABNORMAL) Comprehensive metabolic panel (02/13/2025 4:54 AM CDT) Sodium 140 135 - 145 mmol/L Potassium, pl 3.6 3.3 - 4.9 mmol/L [facility] ([place]) Chloride 103 97 - 110 mmol/L [facility] ([place]) CO2 21(L) 22 - 32 mmol/L [facility] ([place]) Anion gap 16(H) 2 - 15 mmol/L [facility] ([place]) BUN 8 6 - 25 mg/dL [facility] ([place]) Creatinine 0.71 0.60 - 1.10 mg/dL [facility] ([place]) Glucose 175 70 - 199 mg/dL [facility] ([place]) Comment: Interpretive Data Fasting glucose >/= 126 [...] 9.7 8.5 - 10.3 mg/dL [facility] ([place]) Bilirubin, total 0.4 0.1 - 1.2 mg/dL [facility] ([place]) Protein, pl 7.3 6.5 - 8.5 g/dL [facility] ([place]) Albumin 4.6 3.5 - 5.0 g/dL [facility] ([place]) Alk phos 98 40 - 130 Units/L [facility] ([place]) ALT 12 7 - 45 Units/L [facility] ([place]) AST 16 10 - 45 Units/L [facility] ([place]) Blood 02/13/2025 4:54 AM CDT 02/13/2025 5:05 AM CDT us Awilda Prieto MD LAB BLOOD ORDERABLES Rocio l Result [facility] ([place]) 1 [facility] [place] [address] from Last 3 Months Insurance [facility] H[facility]/PPO Address: [address] [address] [place] [address] [facility] CIGNA IDPA Advance Directives For more information, please contact: [phone] * Full Code (Latest Code Status on File) Date Activated Date Inactivated Comments 06/28/2021 3:30 PM 06/29/2021 9:30 PM Care Teams Electric Motor Tester Assembler Relationship Specialty Start Date End Date Minh Lam DO [address] [facility] [address] [place] [address] PCP - General Internal Medicine 02/13/25
--- OUTSIDE RECORDS SUMMARY | 2025-03-16 09:00 | XMS_ITS | Patient Health Record ---
Author Organization [facility] Address [address] [place] [address] Care Team Providers Care Reading Recovery Teacher Name Role Phone Nemo Omalley Primary Care Provider [phone] Allergies No Known Allergies Reason For Referral [...] Problem Status W/U Status Risk Notes Problem [id number] Major depressive disorder, recurrent, moderate (F33.1) Active confirmed Problem [id number] Generalized anxiety disorder (F41.1) Active confirmed Plan Of Treatment No Information Insurance Providers Payer Name Payer Address Payer Phone Subscriber Number Group Number Insured Name Patient Relationship to Insured Coverage Start Date Coverage End Date [facility] [address] [address] [place] [phone] [id number] GeorgePois Self - patient is the insured 1 Medical (General) History Surgical History Surgery Date(Month/Year)
--- OUTSIDE RECORDS SUMMARY | 2025-03-16 09:00 | XMS_ITS | Clinical Summary ---
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 Source: [facility] Bl[facility] Current Interpretive Data was last revised on [...] Reflex to microscopic UA will be performed. [facility] ([place]) Urine 02/13/2025 7:47 AM CDT 02/13/2025 8:03 AM CDT Awilda Prieto MD LAB MICROBIOLOGY - GENERA L ORDERABLES Final Result Performing Organization Address City/[facility]/ZIP Co de Phone Number [facility] ([place]) [address] [facility] [place] [address] * hCG, urine, qualitative (02/13/2025 7:47 AM CDT) HCG, ur Negative Negative Urine 02/13/2025 7:47 AM CDT 02/13/2025 8:18 AM CDT Awilda Prieto MD LAB URINE ORDERABLES Rocio l Result [facility] ([place]) [address] [facility] [place] [address] * (ABNORMAL) Urinalysis, microscopic only (02/13/2025 7:47 AM CDT) WBC, ur 0-5 0 - 5 /HPF RBC, ur 11-20(A) 0 - 2 /HPF [facility] ([place]) Epithelial cells, squamous, ur 1-5 0 - 5 /HPF [facility] ([place]) Mucous, ur Present(A) [facility] More ([place]) Culture Reflex Comment Reflex conditions for urine culture (WBC >10) not met. [facility] ([place]) Urine 02/13/2025 7:47 AM CDT 02/13/2025 8:03 AM CDT us Rebekah Whaley MD LAB URINE ORDERABLES Final Resul t [facility]IG[facility] ([place]) 1 [facility] [place] [address] * eGFR (02/13/2025 4:54 AM CDT) eGFR [...] BLOOD ORDERABLES Rocio l Result [facility] RODRIGUE[facility] ([place]) 1 [facility] [place] [address] * (ABNORMAL) Differential, auto (02/13/2025 4:54 AM [...] Lymphocyte pct 15.2 % [facility] ([place]) Comment: Interpretive [...] Rocio l Result [facility] ([place]) [address] [facility] [place] [address] * (ABNORMAL) CBC with auto differential (02/13/2025 [...] Rocio l Result [facility] ([place]) 1 [facility] [place] [address] * Lipase (02/13/2025 4:54 AM CDT) Lipase 27 10 - 99 Units/L Blood Venous blood specimen / Unknown 02/13/2025 4:54 AM CDT 02/13/2025 5:05 AM CDT Awilda Prieto MD LAB BLOOD ORDERABLES Rocio l Result [facility] ([place]) 1 [facility] [place] [address] * (ABNORMAL) Comprehensive metabolic panel (02/13/2025 4:54 AM CDT) Sodium 140 135 - 145 mmol/L Potassium, pl 3.6 3.3 - 4.9 mmol/L [facility] ([place]) Chloride 103 97 - 110 mmol/L [facility] ([place]) CO2 21(L) 22 - 32 mmol/L [facility] ([place]) Anion gap 16(H) 2 - 15 mmol/L [facility] BUN 8 6 - 25 [...] Rocio sheppard Result [facility] ([place]) 1 [facility] [place] [address] from Last 3 Months Insurance [employer] [employer] Advance Directives For more information, please contact: [phone] * Full Code (Latest Code Status on File) Date Activated Date Inactivated Comments 06/28/2021 3:30 PM 06/29/2021 9:30 PM Care Teams Range Scientist Relationship Specialty Start Date End Date Minh Lam DO [address] [facility] [address] [place], [place] [id number] PCP - General Internal Medicine 02/13/25
--- OUTSIDE RECORDS SUMMARY | 2025-03-16 09:00 | XMS_ITS | Data Portability ---
Author Organization [facility], [facility] Address [address] [place] [address] Assessment No assessment recorded. Plan of Treatment Reminders Order Date Submit Date Provider Last Modified By Organization Details Last Modified Time Details Appointments None recorded. Lab None recorded. Referral None recorded. Procedures None recorded. Surgeries None recorded. Imaging US, obstetric, limited 2021 [email or web address] Not available 13:50:09 Medication Orders Zoloft 50 mg tablet 2021 022 LIVIA [facility][id number], [address], [place], [id number], 21:04:25 NuvaRing 0.12 mg-0.015 mg/24 hr vaginal 2021 022 [email or web address] [facility] #[id number], [address], [place], [id number], 10:18:16 Patient TargetsNo targets recorded. Patient Instructions Encounter Date Encounter Id Patient Instructions Last Modified By Organization Details Last Modified Time 12/12/2021 [id number] Care at Home With Your Baby: Care Instructions [email or web address] Not available 12/15/2021 15:40:29 control after counseling [email or web address] Not available 12/15/2021 15:40:29 edinburgh depression scale* [email or web address] Not available 03/11/2022 12:54:33 01/07/2022 [id number] Care at Home With Your Baby: Care Instructions [email or web address] Not available 01/07/2022 16:47:42 edinburgh depression scale* [email or web address] Not available 02/11/2022 11:56:36 control after counseling tcarrell Not available 01/07/2022 16:47:42 07/21/2022 [id number] depression after childbirth: care instructions [email or web address] Not available 07/21/2022 10:29:18 edinburgh depression scale* [email or web address] Not available 08/01/2022 11:22:56 Reason for Referral None Reported. Results Created Date Observation Date Name Description Value Unit Range Abnormal Flag Note LastModifiedBy Organization Detail LastModifiedTime 11/13/19 22 11/15/2021 GLUCO SE, GESTA SUJIT L SCREE N (50G) -135 CUTOF F glucose, gestational screen (50g)-135 cutoff 108 mg/dL <135 normal Not Available [address], [address], 11/15/2021 10:32:25 11/13/19 22 11/15/2021 CBC (INCL UDES DIFF/ PLT) white blood cell count 11.2 thous and/u L 3.8-10 .8 high Not Available [address], [address], 11/15/2021 10:32:26 11/13/19 22 11/15/2021 CBC (INCL UDES DIFF/ PLT) red blood cell count 4.39 nataly on/uL 3.80-5 .10 normal Not Available [address], [address], 11/15/2021 10:32:26 11/13/19 22 11/15/2021 CBC (INCL UDES DIFF/ PLT) hemoglobin 13.0 g/dL 11.7-1 5.5 normal Not Available [address], [address], 11/15/2021 10:32:26 11/13/19 22 11/15/2021 CBC (INCL UDES DIFF/ PLT) hematocrit 39.5 % 35.0-4 5.0 normal Not Available [address], [address], 11/15/2021 10:32:26 11/13/19 22 11/15/2021 CBC (INCL UDES DIFF/ PLT) MCV 90.0 fL 80.0-1 00.0 normal Not Available [address], [address], 11/15/2021 10:32:26 11/13/19 22 11/15/2021 CBC (INCL UDES DIFF/ PLT) MCH 29.6 pg 27.0-3 3.0 normal Not Available [address], [address], 11/15/2021 10:32:26 11/13/19 22 11/15/2021 CBC (INCL UDES DIFF/ PLT) MCHC 32.9 g/dL 32.0-3 6.0 normal Not Available [address], [address], 11/15/2021 10:32:26 11/13/19 22 11/15/2021 CBC (INCL UDES DIFF/ PLT) RDW 12.5 % 11.0-1 5.0 normal Not Available [address], [address], 11/15/2021 10:32:26 11/13/19 22 11/15/2021 CBC (INCL UDES DIFF/ PLT) platelet count 312 thous and/u L 140-40 0 normal Not Available [address], [address], 11/15/2021 10:32:26 11/13/19 22 11/15/2021 CBC (INCL UDES DIFF/ PLT) MPV 10.2 fL 7.5-12 .5 normal Not Available [address], [address], 11/15/2021 10:32:26 11/13/19 22 11/15/2021 CBC (INCL UDES DIFF/ PLT) absolute neutrophils 8781 cells /uL 1500-7 800 high Not Available [address], [address], 11/15/2021 10:32:26 11/13/19 22 11/15/2021 CBC (INCL UDES DIFF/ PLT) absolute lymphocytes 1568 cells /uL 850-39 00 normal Not Available [address], [address], 11/15/2021 10:32:26 11/13/19 22 11/15/2021 CBC (INCL UDES DIFF/ PLT) absolute monocytes 582 cells /uL 200-95 0 normal Not Available [address], [address], 11/15/2021 10:32:26 11/13/19 22 11/15/2021 CBC (INCL UDES DIFF/ PLT) absolute eosinophils 224 cells /uL 15-500 normal Not Available [address], [address], 11/15/2021 10:32:26 11/13/19 22 11/15/2021 CBC (INCL UDES DIFF/ PLT) absolute basophils 45 cells /uL 0-200 normal Not Available [address], [address], 11/15/2021 10:32:26 11/13/19 22 11/15/2021 CBC (INCL UDES DIFF/ PLT) neutrophils 78.4 % normal Not Available [address], [address], 11/15/2021 10:32:26 11/13/19 22 11/15/2021 CBC (INCL UDES DIFF/ PLT) lymphocytes 14.0 % normal Not Available [address] [place], [address], 11/15/2021 10:32:26 11/13/19 22 11/15/2021 CBC (INCL UDES DIFF/ PLT) monocytes 5.2 % normal Not Available [facility] [place] [address] [place], [address], 11/15/2021 10:32:26 11/13/19 22 11/15/2021 CBC (INCL UDES DIFF/ PLT) eosinophils 2.0 % normal Not Available [facility] [place] [address] [place], [address], 11/15/2021 10:32:26 11/13/19 22 11/15/2021 CBC (INCL UDES DIFF/ PLT) basophils 0.4 % normal Not Available [facility] [place] [address] [place], [address], 11/15/2021 10:32:26 11/13/19 22 11/15/2021 HIV 1/2 [...] matio n pleas e refer to http: //[facility] catio n.que stdia gnost ics.c om/fa q/FAQ 106 (This link is being provi ded for infor matio nal/ educa sujit l purpo ses only. ) The perfo rmanc e of this assay has not been clini madelyn valid ated in patie nts less than 2 years old. Not Available [facility] [address] [place], [address], 11/15/2021 10:32:26 11/13/19 22 11/15/2021 RPR (DX) W/REF L TITER AND CONFI RMATO RY TESTI NG RPR (DX) w/refl titer and confirmatory testing NON-RE ACTIVE non-re active normal Not Available [facility] [address], [place], [address], 11/15/2021 10:32:27 10/11/19 22 10/11/2021 US, obste tric, mater nal evalu ation + anato my No observ ation record ed. [email or web address] [address], [place], [address], 10/11/2021 15:26:23 11/10/19 22 11/08/2021 US, obste tric, limit ed No observ ation record ed. [email or web address] [address], [place], [address], 11/13/2021 21:49:02 Result Notes None recorded. Problems Name Problem SNOMED Code Status Onset Date Resolution Date Notes Provider Name and Address Organization Details Recorded Time Syphilis test finding 714488747 Completed 201806/07/2021 Encounte r for screenin g for infectio ns with a predomin antly sexual mode of transmis symone; Progress : Stable Added By: Deanna Rodriguez Add to Current Problems : NO ProblemS tatus: Resolve Not Available [facility] 21:38:41 Sampling of vagina for Papanico laou smear Completed 201809/02/2021 Encounte r for gynecolo gical examinat ion (general ) (routine ) without abnormal findings ; Severity : Moderate Progress : Stable Added By: Deanna Rodriguez Add to Current Problems : YES ProblemS tatus: Current CHIO MURILLO CNM [address] [place], [address] , [facility] [employer] [facility] IV 1 10:33:54 Uses contrace ption 34238698 Completed 201701/19/2018 Follow-u p visit for other contrace ption method; Location : None Severity : Moderate Progress : Stable Added By: Kiersten Gan Add to Current Problems : YES ProblemS tatus: Resolve Not Available [facility] 19:48:07 Exposure to sexually transmis sible disorder [...] 2 21:38:40 Gestatio n period, 10 weeks 51009904 Completed 202009/02/2021 10 weeks gestatio n of pregnanc y; Severity : Moderate Progress : Stable Added By: Deanna Rodriguez Add to Current Problems : YES ProblemS tatus: Current CHIO KAMIJAIMIE TANNER [address] [place], [address] , [facility] [employer] [facility] IV 1 10:33:48 Gestatio n less than 9 weeks 914724913 Completed 202009/02/2021 Less than 8 weeks gestatio n of pregnanc y; Severity : Moderate Progress : Stable Added By: Deanna Rodriguez Add to Current Problems : YES ProblemS tatus: Current CHIO MURILLO CNM [address] [place], [address] , [employer] [facility] IV 1 10:33:46 Pregnanc y, childbir th and puerperi um finding Completed 202010/11/2021 Encounte r for supervis ion of normal first pregnanc y, first trimeste r; Severity : Moderate Progress : Stable Added By: Deanna Rodriguez Add to Current Problems : YES ProblemS tatus: Current Camilla Marie MD [address] [place] [address], [address] , [facility] [employer] [facility] IV 2 13:09:20 Pregnanc y 35828264 Completed 202012/15/2021 Jackeline Vasquez MD [address] [place] [address], [address] , [facility] [employer] [facility] IV 2 15:42:53 History of depressi on 192825142 Completed mood stable Jackeline Vasquez MD [address] [place] [address], [address] , [facility] - [employer] [facility] IV 2 15:42:49 Asthma 152852479 Completed no meds Jackeline Vasquez MD [address] [place] [address], [address] , [facility] - [employer] [facility] IV 2 15:42:49 Hypereme sis gravidar 71916222 Completed resolvin g, zofran 2-3x daily Jackeline Vasquez MD [address] [place] [address], [address] , [facility] [employer] [facility] IV 2 15:42:49 Hypereme sis gravidar 85496844 Completed 10/11/2021 resolvin g, zofran 2-3x daily Camilal Marie MD [address] [place] [address], [address] , [facility] - [employer] [facility] IV 2 13:09:17 Rubella non-immu ne 167166563 Completed MMR postpart um Jackeline Vasquez MD [address] [place] [address], [address] , [facility] - [employer] [facility] IV 2 15:42:49 Normal pregnanc y in primigra megan 39203142597 4103 Completed O+/RI gtt 108 Jackeline Vasquez MD [address] [facility], [place], [address] , [facility] - [facility] [employer] IV 2 15:42:49 Sampling of vagina for [...] 2 21:38:40 Gestatio n period, 14 weeks 31526545 Active 2020 14 weeks gestatio n of [...] 2 21:38:41 Mild hypereme sis gravidar um 80604563 Active 2020 Mild hypereme sis gravidar um; [...] : YES ProblemS tatus: Current Not Available [facility] 2 21:38:42 Antenata l screenin g Active 2020 Encounte r for other specifie d antenata l screenin g; Progress : Stable Added By: Deanna Rodriguez Add to Current Problems : YES ProblemS tatus: Current Not Available [facility] 2 22:04:47 Problem Notes None recorded. Procedures Surgical History Date Name Laterality Status Provider Name and Address Organization Details Recorded Time Date of Last Pap Smear completed [facility] 10/03/2021 17:12:56 Imaging Results None recorded. [...] HCl 12/12 completed metoclop ramide HCl RxNorm: 9422121 Refill Denied: No Refill DateOccu rred: 07/08/20 Edited by: ameya heller(Imelda Sloan ) on 07/08/20 21 Stopped by: ameya pina(Imelda Sloan ) on Not Available Not Available Not Available sucralfat e 12/12 completed sucralfa te RxNorm: 76061 Refill Denied: No Refill DateOccu rred: 07/08/20 Edited by: ameya heller(Imelda Sloan ) on 07/08/20 Stopped by: ameya pina(Imelda Sloan ) on Not Available Not Available Not Available promethaz ine 12/12 completed prometha zine RxNorm: 002503 Refill Denied: No Refill DateOccu rred: 07/08/20 Edited by: ameya heller(Imelda Sloan ) on 07/08/20 21 Stopped by: ameya heller(Imelda Sloan ) on Not Available Not Available Not Available NuvaRing Insert 1 vaginal ring in vagina for 21 days then remove the ring for 1 week. 11/20 completed NuvaRing 0.015mg/ 0.12mg Vaginal Ring RxNorm: 0046352 Allow Substitu tion: True Refill Denied: No Not Available Not Available Not Available aripipraz ole 2 mg tablet TAKE 1 TABLET BY MOUTH EVERY DAY AT BEDTIME 09/02 completed Not Available Not Available Not Available ProAir HFA 09/02 completed ProAir HFA RxNorm: 388672 Refill Denied: No Refill DateOccu rred: 06/10/20 [...] Updated DateTime 2 165.1 cm 25 kg/m2 23287.2 17347 g 98.2 [degF] 116 mm[Hg] 68 mm[Hg] Ramonita Oakland [employer] [facility] 2 10:40:05 Date Recorded Body height Body mass index (BMI) Body weight Body temperature Systolic blood pressure Diastolic blood pressure Provider Name and Address Organization Details Last Updated DateTime 2 165.1 cm 25.4 kg/m2 98193.1 25923 g 97.7 [degF] 118 mm[Hg] 72 mm[Hg] Elsa Steve [facility] 2 12:44:53 Date Recorded Body height Body temperature Body mass index (BMI) Body weight Systolic blood pressure Diastolic blood pressure Provider Name and Address Organization Details Last Updated DateTime 2 165.1 cm 98 [degF] 22.8 kg/m2 12397.4 30066 g 126 mm[Hg] 74 mm[Hg] Ramonita Cuelloer [facility] 2 11:23:33 Date Recorded Body height Body mass index (BMI) Body weight Body temperature Systolic blood pressure Diastolic blood pressure Provider Name and Address Organization Details Last Updated DateTime 2 165.1 cm 24.5 kg/m2 16957.5 2 g 97.5 [degF] 122 mm[Hg] 72 mm[Hg] Ramonita Arceolister [facility] 2 16:20:26 Date Recorded Body height Body mass index (BMI) Body weight Systolic blood pressure Diastolic blood pressure Provider Name and Address Organization Details Last Updated DateTime 07/21/2022 165.1 cm 21.7 kg/m2 64441.16 g 118 mm[Hg] 70 mm[Hg] Katina Hutchinson [facility] 2 10:17:51 Social History Question Answer Notes LastModified by [employer] Details LastModified Time Tobacco Smoking Status Never Smoker Katina Hutchinson yesica, [facility] 07/21/2022 10:19:20 What Type Of Diet Are You Following? REGULAR [email or web address] Information not available 07/21/2022 What Is Your Relationship Status? Single Information not available 10/03/2021 Are You Sexually Active? Yes Information not available 10/03/2021 Sex: Unknown Functional Status Question Answer Note LastModified by [employer] Details LastModified Time Do you use any illicit or recreational drugs? No Information not available 07/21/2022 Do you or have you ever used any other forms of tobacco or nicotine? No [email or web address] Information not available 07/21/2022 What is your level of alcohol consumption? None [email or web address] Information not available 07/21/2022 Mental Status None [...] SNOMED-CT Code Diagnosis ICD10 Code Diagnosis Note [id number] [facility] [address] [place] [address] 09/02/2021 10:09:16 09/02/2021 10:52:32 Hyperemesis gravidarum 27672322 O21.0 Weaned down to zofran only. Mild nausea 2-3 times a day. Feeling much better [id number] [facility] [address] [place] [address] 10/04/2021 10:26:38 10/04/2021 20:04:52 Normal in primigravida 3174965573 29935 Z34.02 Gestation period, 23 weeks 00853555 Z3A.23 Pt was not scheduled for anatomy scan - PA sent today [id number] Camilla Marie MD [facility] [address] [place] [address] 10/11/2021 12:06:14 10/11/2021 13:17:24 screening for malformation 003979831 Z36.3 Routine an tenatal care 533350910 Z34.02 Gestation period, 24 weeks 142071751 Z3A.24 [id number] [facility] [address] [place] [address] 11/08/2021 10:00:59 11/14/2021 13:50:08 screening for malformation 035120186 Z36.3 [id number] [facility] [address] [place] [address] 11/22/2021 11:52:27 11/25/2021 15:13:41 [id number] [facility] [address] [facility] [address] 12/12/2021 11:02:54 12/12/2021 12:49:30 state 21960480 Z39.2 Maternal p ostpartum depression screening 7390520793 61711 Z13.32 Chaim is doing well so far . EPDS = 8 today. Planning Nuva Ring for control, used in past and was happy with it, plan Rx at 6 weeks pp. F/u in 4wks for 6wk pp visit. [id number] RAJIV FRITZ CLEMENT CNM [facility] h [address] [place] [address] 01/07/2022 16:03:43 01/14/2022 11:58:41 state 69919373 Z39.2 COUNSELING was provided today regarding the following topics:- healthy eating habits. -- education given on weight management .- regular exercise - may resume pre-pregna ncy frequency and intensity as tolerated- Sexual activity - may resume intercours e & use backup contracept ion as needed.- Dietary supplement s: continue vitamins- Experimental [employer] Developer screening: maintain recommende d screening guidelines including [...] in crib that could present hazard to infant.- Resume normal activity as tolerated- May return to work w/o restrictio n when specified maternity leave is completed. - FOLLOW-UP: Schedule a follow-up appointmen t as needed Contracept ion care management 381463199 Z30.9 - Discussed options including OCPs, NuvaRing, [...] >6 week PP and once bleeding stops. [id number] RAJIV TOLBERTKellen CLEMENT CNM [facility] [address] [place] [address] 07/21/2022 10:13:24 07/21/2022 11:01:36 depression 48140902 F53.0 F41.9 Patient presents for evaluation of [...] Name 01/07/2022 2 [employer] BETTER HEALTH OF [place] - [facility] ON OR AFTER 08/28/2020 (MEDICAID REPLACEMENT - HMO) Chaim Vazquez [id number] Chaim Vazquez 07/24/2022 1 [employer] [id number] Chaim Vazquez [id number] Chaim Vazquez 07/18/2022 2 [place] [employer] Chaim Vazquez [id number] Chaim Vazquez Notes Date Note Type Note Provider Name and Address Organization Details Recorded Time 11/08/2021 text/html OB ProblemReport ed bypatient.Associated Symptoms:no abdominal pain; no cramping; no contractions; normal movement; no bleeding; no ROM; no vaginal discharge; no vaginal/vulvar itching or irritation; no edema; no visual changes; no headache; no dizziness; no breathlessness Kusum Pro CNM [address] [place], [address], [facility] Rep 11/08/2021 17:00:00 11/22/2021 text/html OB ProblemReport ed bypatient.Associated Symptoms:no abdominal pain; no cramping; no contractions; normal movement; no bleeding; no ROM; no vaginal discharge; no vaginal/vulvar itching or irritation; no edema; no visual changes; no headache; no dizziness; no breathlessness [facility] [place], [address], [facility] IV 11/22/2021 13:10:40 12/12/2021 text/html VisitReported bypatient.Onset/Timin g:date of delivery: (11/25/2021) Quality: Context:feeding choice: breast (pumping) Associated Symptoms:no abnormal bleeding; no vaginal discharge; no pelvic pain; laceration well healed; no constipation; no fecal incontinence; no dysuria; no urinary incontinence; no fever; no problems; no mastitis; normal mood Chaim is here for visit. She presented to [facility] at 28 weeks' gestation where she was diagnosed with PPROM and subsequently transferred to [facility] for observation. She went into labor shortly [...] home as instructed by her doctors at [facility], reports they have been within normal limits. Chaim reports she is doing well overall, no complaints. She is ambulating without difficulty, tolerating a regular diet, voiding normally, and having regular bowel movements. Lochia is decreasing and within normal limits. She reports good mood, denies significant sadness/anxiety. Jackeline Vasquez MD [facility] [place], [address], [facility] IV 12/15/2021 15:44:11 01/07/2022 text/html VisitReported bypatient.Onset/Timin g:date of delivery: (11/25/2021) Quality: Context:feeding choice: bottle (pumping) Associated Symptoms:no abnormal bleeding; no vaginal discharge; no pelvic pain; laceration well healed; no constipation; no fecal incontinence; no dysuria; no urinary incontinence; no fever; no problems; no mastitis; normal mood RAJIV CLEMENT, CARLOSM [address] [facility], [place], [address], [facility] Rep IV 01/12/2022 20:48:55 07/21/2022 text/html Chaim here due to post issues, c/o weight loss, no appetite, mood swings, anxiety x 2-3 months, Delivered on 11/25/2021. her baby was in the NICU for >1 month r/t prematurity. RAJIV CLEMENT, JAIMIE [address] [facility], [place], [address], [facility] Rep IV 07/21/2022 10:57:09 OBGyn Episode Ob Episode Information Episode Created Date Number of Fetuses Patient Bloodtype Patient rh Status Prepregnancy Weight lbs Domestic Partner Domestic Partner Phone Father Name Education Diagnostician Status 09/02/20 21 1 O Positive 149 CLOSED Fetus Data First Name Last Name Admitted to NICU Weight (g) Sex Living Outcome Pediatric Complications Fetus ID Race Codes Race Delivery Type King Bhat true 1584.75 [id number] F true Prematur e 50209 2106-3 White Problems Problem Notes CF negative Problem Name Start Date End Date Resolution Snomed Code Not e History of depression 719776093 mood stable Asthma 021374102 no meds Hyperemesis gravidarum 92909099 resolving, zofr an 2-3x daily Rubella non-immune 094042936 M MR Normal in primigravida 865394187621826 O+/RI gtt 10 8 Luis Fernando Calculation [...] Weight in lbs Pre/Post Dialysis Refused Weight 143.573777695704 BP Diastolic BP Location Tested BP Systolic [...] in lbs Pre/Post Dialysis Refused With clothes 149.473714524368 BP Diastolic BP Location Tested BP Systolic [...] in lbs Pre/Post Dialysis Refused With clothes 146.684142372338 BP Diastolic BP Location Tested BP Systolic [...] Weight in lbs Pre/Post Dialysis Refused Weight 150.71733121436 BP Diastolic BP Location Tested BP Systolic [...] Weight in lbs Pre/Post Dialysis Refused Weight 152.413577602650 BP Diastolic BP Location Tested BP Systolic BP Type 72 118 Fetus Heart Rate Present A 128 Fetus Movement A Yes Comments Tdap and Flu orders given to day Flowsheet Date 12/12/2021 Vega Score Blood Edema Fundus Height Fundus Units Glucose Ketones Leukocytes Nitrite Labor Signs Protein Cervic Dilation Cervic Effacement Cervic Station Type Weight in lbs Pre/Post Dialysis Refused Weight 136.04062041907 BP Diastolic BP Location Tested BP Systolic [...] Disease false Other Infection History false Thalassemia (Luxembourgish, Moldovan, Mediterranean, Or Background): MCV < 80 false [...] false History of Hepatitis false Ryland-Sachs (eg, Uatsdin, Cajun, Nepali-Henry) f alse History Of STD, Gonorrhea, Chlamydia, HPV, Syphi lis false Prior GBS-infected child false History of HIV false Personal or Family History o f Neural Tube Defect (Meningomyelocele, Spina Bifida, Or Anencephaly) false Hemophilia Or Other Blood Disorders false Mental Retardation/Autism false [place]'s Chorea false If Yes, Was Person Tested [...]
[2025-03-16 09:30] LABS: Amylase 74 U/L (30-110)
== END 2025-03-16 08:50 | disposition home or self-care (01) ==
PROVIDERS: PCP Internal Medicine; Visit Provider Surgery
DX: K81.1 Chronic cholecystitis (principal)
CPT/HCPCS: 36415; 82150; 86850; 86900; 86901

== ENCOUNTER 2025-03-20 00:41 | Day surgery (SDC) | payer OTHER, MEDICAID, SELFPAY ==
[2025-03-15 10:14] VITALS: BMI 19.7
--- NOTE | 2025-03-15 10:16 | PC.NURSE ---
Report to the Outpatient Waiting Room, entrance under the green pavilion located off [facility], at time _0930_ on date _[id number]_. Planned Procedure Time: _1130_.? Time changes happen often and if your time is changed the preop area will call you the afternoon before. - You and your visitor will be asked to self-screen and do not enter if you have any COVID symptoms. Please call surgeon if you need to reschedule. - A mask is optional within the hospital at this time. Patients may have clear liquids (water, carbonated beverages, clear teas, apple juice) until 3 hours prior to surgery with a maximum of 20 ounces. - No food from midnight until time of surgery and no smoking, or chewing tobacco (or any form of nicotine). No chewing gum, candy or mints. Take only the following medications with a SIP of water on the morning of surgery: ____None____ DO NOT STOP ANY OF YOUR OTHER PRESCRIPTION MEDICATIONS PRIOR TO SURGERY EXCEPT THE FOLLOWING Hold all vitamins and supplements for 3 days per anesthesiologist. Medications to discontinue per physician Date to take last dose Please no make-up, nail latvian, hairspray, perfume, deodorant, or body powder the day of surgery.? No jewelry (including any body piercings) or valuables the day of surgery, leave them at home.? Please take a shower or bath the night before, or the morning of, surgery with an antibacterial soap.? Wear comfortable, loose fitting clothing.? - Jewelry must be removed prior to entering the operating room.? Rings and piercings that are not removed may be cut off. - The hospital will not accept responsibility for valuables.? - Please leave all valuables, including medications, at home the day of surgery. If you are going home after surgery, a licensed concrete mixing truck driver must drive you home.? - NO public transportation without another adult if you receive anesthesia. - We recommend that an adult stay with you for 24 hours following discharge. - We also recommend that you do not drive, make important decision, drink alcoholic beverages, or take any drugs that were not prescribed by your health care provider for at least 24 hours after your discharge time. Follow any additional instructions given to you from your surgeon. Telephone instructions given to __Lexi___and asked if any additional questions and then verbalized understanding. Patient advised to call surgeon office or pre surgery nurse liaison [phone] if any additional questions.
[2025-03-20] VITALS (8 sets, daily range): BP systolic 97–136; BP diastolic 52–83; PULSE 46–93; RESP 14–20; TEMP 36.6–36.8; O2SAT 100
[2025-03-20 08:32] LABS: BEDSIDEPREGUCG Negative (Negative)
[2025-03-20] MEDS: ACETAMINOPHEN 500 MG TABLET 1000 MG PO (08:40)
--- NOTE | 2025-03-20 08:40 | WPDANESEPPF ---
Anes - Initial Pre Proc Eval Procedure: Operation Date: 03/20/25 11:30 Proposed Procedures p Robotic Assisted Laparoscopic Cholecystectomy - Zabrina Castillo MD Date/Time: 03/20/25 08:40 Surgeon: Zabrina Castillo MD Pre Op Diagnosis: chronic cholecystitis Patient Data Age: 24 Gender: F Height: 1.68 m Weight: 54.7 kg Last Vital Signs Temp 36.6 C 03/20/25 08:25 Pulse 68 03/20/25 08:25 Resp 16 03/20/25 08:25 BP 125/72 03/20/25 08:25 Pulse Ox 100 03/20/25 08:25 O2 Del Method Room Air 03/20/25 08:25 Allergies Allergy/AdvReac Type Severity Reaction Status Date / Time No Known Allergies Allergy Mild Verified 03/15/25 10:07 Home Medications ?Medication ?Instructions ?Recorded ?Confirmed ?Type No Home Medications 03/08/25 03/15/25 History Laboratory Tests 03/20/25 08:28 POC Urine HCG, Qual Negative (Negative) Patient hx anesthesia problems: none Family hx anesthesia problems: none Results Review: All pre-operative results and documents have been reviewed as part of the pre-operative evaluation. COUNTS INCLUDE 234 BEDS AT THE [facility] Past Medical History Medical History (Updated 03/08/25 @ 11:01 by Luanne Guthrie) Anxiety Allergies Body mass index (BMI) less than 20 Asthma Depression Healthy female adult Surgical History Surgical History No history of previous surgery Family History Family History Father No problems noted. Mother No problems noted. Sibling No problems noted. Social History Social History (Updated 03/08/25 @ 10:36 by Sandra Leonard MA) Smoking status: Never smoker Tobacco type: e-cigarettes/vaping Second hand tobacco smoke exposure: No Alcohol intake: current Substance use: current Substance use type: marijuana Other substance usage details: Daily Do You Feel Safe in your Home?: Yes Lack of Transportation: No Lack of Food: Sometimes True Current Housing: I Have Housing Concerned About Future Housing: No Difficulty Paying Gas/Electric Bills: No Difficulty Paying for Meds: No Currently Unemployed: No Education: High School Diploma/GED Difficulty w/ Childcare or Family Care: No Living arrangements: with family Occupation/Education: occupation Additional occupation/education comments: [employer] Gender identity (if verbalized by the patient): Female Spiritual care concerns: No Agree to blood products: Yes Anes - Eval Final PreProcedure Day of Procedure 03/20/25 08:40 Patient weight: normal Heart: regular rate and rhythm Lungs: clear to auscultation Airway: Mallampati scale class 1 Neurological: alert and oriented Last oral intake: >/= 8 hours ASA classification: III Emergent: no Anesthetic plan: proceed Anesthesia type and monitoring: general ETT and standard monitoring Results Review: All pre-operative results and documents have been reviewed as part of the pre-operative evaluation. Informed Consent: The patient's anesthetic plan and its attendant risks and benefits were discussed with the patient/family/POA. Questions were solicited and answers provided to the satisfaction of the patient/family/POA.
--- NOTE | 2025-03-20 08:42 | WPDHPUPDATE1 ---
History and Physical Update Update Date/Time: 03/20/25 08:42 History and Physical has been reviewed, including an updated exam of the patient. There are NO changes in the patient's condition. Risks, benefits, and alternatives have been discussed and questions answered. Patient agrees to proceed with procedure.
[2025-03-20] MEDS: INDOCYANINE GREEN 25 MG VIAL WITH DILUENT 3.75 MG IV PUSH (08:45)
[2025-03-20] MEDS: LACTATED RINGERS 1,000 ML 30 ML IV CONT ×2 (08:45→10:37)
[2025-03-20] MEDS: KETOROLAC 15 MG/ML VIAL (*BKC) IV PUSH (08:48)
[2025-03-20] MEDS: MIDAZOLAM HCL (*CRX) 2 MG/2 ML VIAL IV PUSH (09:00)
[2025-03-20] MEDS: ceFAZolin 2 GM/D5W 50 ML 2 GM/50 ML BAG IVPB (09:17)
[2025-03-20] MEDS: BUPIVACAINE/EPINEPHRINE 0.5% 50 ML VIAL 30 ML INFILTRATE (09:17)
--- NOTE | 2025-03-20 10:20 | S_PTH ---
PATIENT: Chaim Vazquez LOC: [facility] U#:[id number] AGE/SX: 24/F ROOM: RE03/20/[address]: Zabrina Castillo MD : 2000 BED: DIS: 03/20/2025 SPEC #: [id number] RECD: 03/20/25 13:27 STATUS: JORGE REAmanda #: [id number] ED: 03/20/25 10:[address]: Zabrina Castillo DEPT: [facility] Surgical RECD BY: Katelyn Steiner ENTERED: 03/20/25 13:27 SP TYPE: Surgical OTHR DR: Minh Lam DO Tissues: A - Gallbladder Procedures: Hematoxylin and Eosin Stain Gross and Microscopic Level 3
--- NOTE | 2025-03-20 10:32 | P.OP_ITS ---
Procedure Note - Detailed Date of Procedure 03/20/25 Pre-op Diagnosis chronic cholecystitis Post-op Diagnosis Same Procedure Performed Robotic assisted cholecystectomy Surgeon Zabrina Castillo MD Anesthesia General Indications 24-year-old male presenting to the office complaining of postprandial pain upper abdominal pain, bloating. Workup, including imaging, significant for chronic cholecystitis. Findings moderate cholecystitis Description of Procedure The patient was taken to the operating room and placed in the supine position. After adequate induction of general anesthesia, the patient was prepped and dr aped in the normal sterile fashion. A time-out was then done to verify the patient's identity, as well as the procedure being performed. I began by making a 8 mm incision in the periumbilical region. A Veress needle was then placed in the peritoneal cavity and CO2 gas was insufflated. After adequate pneumoperitoneum was achieved, the Veress needle was removed and a 8 mm Optiview trocar was placed under direct visualization. Once into the abdominal cavity, the introducer was removed and the laparoscope was placed through this trocar site. Under direct visualization, I placed a further 8 mm port in the left mid abdomen and 2 additional 8 mm ports in the right mid abdomen. The robot was then docked to these ports sites. I then went to the console. The gallbladder was then identified and noted to be moderately inflamed and distended. I was able to place a grasper at the dome of the gallbladder and this was retracted up and over the liver. A 2nd retractor was used to grasp the infundibulum and retracted laterally. This allowed visualization and dissection of the triangle of Calot. There were some omental adhesions to the gallbladder and these were taken down with the cautery. I then began dissection around the triangle Calot. I first identified the cystic duct, I was able to visualize the entirety of the duct from its proximal insertion into the gallbladder to its distal junction with the common hepatic/common bile duct junction. I then used the firefly visualization at this point to confirm the anatomy. The proximal cystic duct was then further skeletonized, clipped, and transected. Next I visualized the cystic artery. Again the structure was skeletonized, clipped, and transected. I then again used firefly to confirm anatomy and no aberrant anatomy was noted. I then used the Bovie cautery to take down the peritoneal attachments of the gallbladder off the liver bed. Once the gallbladder specimen was completely detached, an Endo pouch was placed through the left 8 mm port site and the gallbladder specimen was placed in the endo-pouch and subsequently removed. Of note, I made a cholecystostomy and decompressed the gallbladder to facilitate removal. I then re-examined the right upper quadrant. Hemostasis was noted in the liver bed and the clips were noted to be in good position on both the duct and the artery. No other pathology was seen in the right upper quadrant. All instruments were then removed and the robot was undocked. The abdomen was then desufflated and all ports were removed. All port sites were then closed with 4- 0 Monocryl subcuticular suture. Dermabond was placed on each was wound. The patient tolerated the procedure well and was extubated in the operating room postop. The patient will now be transferred to the recovery room in stable condition. Estimated Blood Loss 5 Drains No Packing No Pathology Yes Complications No immediate complications Condition Stable Disposition PACU [facility] Billing Surgery - Charge Forward: Surgery Billing
[2025-03-20] MEDS: fentaNYL CITRATE INJ (*CRX) 100 MCG/2 ML VIAL 25 MCG IV PUSH ×4 (11:02→11:19)
[2025-03-20] MEDS: oxyCODONE HCL (*CRX) 5 MG TAB IR PO (11:59)
== END 2025-03-20 12:30 | disposition home or self-care (01) ==
PROVIDERS: PCP Internal Medicine; Visit Provider Surgery
PROC: 0FT44ZZ Resection of Gallbladder, Percutaneous Endoscopic Approach (ICD-10-PCS; CPT 47562; principal; 2025-03-20 11:30)
DX: K81.1 Chronic cholecystitis (principal); F12.90 Cannabis use, unspecified, uncomplicated
CPT/HCPCS: 47562; 88304; A9270; J0690; J1100; J1885; J2003; J2250; J2405; J2704; J3010; J7120